=== PATIENT | male | born 1950 | race Caucasian/White ===

== ENCOUNTER 2017-11-20 16:49 | Inpatient (IN) | payer MEDICARE, MEDICAID ==
[~2017-11-20 16:49] MED LIST: ISOVUE-370 76%-LOCM 1 ML ONE
[2017-11-20] MEDS ORDERED: Fentanyl 100 MCG/2 ML VIAL ONE (17:21)
[2017-11-20 17:22] LABS: CO2 Tension 14.5 mmHg (35.0-45.0); pH, Arterial 7.28 (7.35-7.45)
[2017-11-20 17:23] LABS: Hemoglobin 2.4 g/dL (14.0-18.0); Mean Corpuscular HGB CONC 29.2 g/dL (32.0-36.0); Mean Corpuscular Hemoglobin 25.6 pg (27.0-31.0); Mean Corpuscular Volume 87.7 fl (80.0-94.0); Mean Platelet Volume 6.8 fL (7.4-10.4); Platelet Count 942 thou/uL (130-400); RBC Distribution Width 17.7 % (11.5-14.5); Red Blood Cell (RBC) Count 0.94 mill/uL (4.70-6.10)
[2017-11-20 17:23] LABS: Actual Bicarbonate (HCO3a) 6.7 mEq/L (22-26)
[2017-11-20 17:24] LABS: ALV-art Gradient 145.875 (0-20); Analyzer IN Cardio ER; Puncture Site RFA
[2017-11-20 17:31] LABS: PTT 226.2 SEC (22.9-36.1); Prothrombin Time Greater than 150.0 SEC (12.0-14.7)
[2017-11-20 17:33] LABS: ALT (SGPT) 908 U/L (8-55); AST (SGOT) 1935 U/L (5-34); Albumin 2.6 g/dL (3.4-4.8); Alkaline Phosphatase 84 U/L (40-150); BUN (Urea Nitrogen) 82 mg/dL (8.4-25.7); Bilirubin, Total 1.2 mg/dL (0.2-1.2); Calc. Creatinine Clearance 0 mL/min (70-130); Calcium 7.6 mg/dL (7.8-10.44); Chloride 107 mmol/L (98-107); Estimated GFR-MDRD 30; Globulin 2.4 g/dL (2.4-3.5); Glucose 166 mg/dL (80-115); Potassium 6.1 mmol/L (3.5-5.1); Sodium 140 mmol/L (136-145)
[2017-11-20 17:36] LABS: Carbon Dioxide Less than 8 mmol/L (23-31)
[2017-11-20] MEDS ORDERED: Midazolam HCl 2 mg/2 ml Vial ONE (17:37)
[2017-11-20 17:41] LABS: Bilirubin Negative (Negative); Blood, Urine Moderate (Negative); Clarity CLEAR (Clear); Glucose, Urine (Dipstick) Negative (Negative); Leukocyte Negative (Negative); Nitrite Negative (Negative); Protein, Urine (Dipstick) Negative (Neg-Trace); Specific Gravity, Urine 1.018 (1.002-1.036); Urobilinogen 0.2 mg/dL (0.2-1.0)
[2017-11-20 17:42] LABS: Troponin I 0.042 ng/mL (< 0.028)
[2017-11-20 17:43] LABS: Bacteria/HPF None Seen HPF (None Seen); Hyaline Casts/LPF 0-3 HYALINE CAST LPF (0-3 Hyaline); Pathc Cast-AUWi Flag 0.43 (0-2.49); RBC/HPF None Seen HPF (0-3); Squamous Epithelial 0-3 HPF (0-3); WBC/HPF None Seen HPF (0-3)
[2017-11-20] MEDS ORDERED: Calcium Gluc 4.6 MEQ/10 ML (100 MG/ML) ONE (17:44)
--- NOTE | 2017-11-20 17:45 | RAD ---
SINGLE VIEW OF THE CHEST: Comparison: None. History: Altered mental status for 3-4 days. Intubated for altered mental status. FINDINGS: Single view of the chest shows an enlarged cardiomediastinal silhouette. Patient is status post mullen otomy. The endotracheal tube is well aligned, approximately 1.4 cm from the donato. There is an NG tu be with tip in the stomach. There is no evidence of consolidation, mass, or pleural effusion. IMPRESSION: Low lying endotracheal tube. Recommend withdrawing approximately 2 cm. Code T POS: [facility]
[2017-11-20 17:49] LABS: CKMB 13.3 ng/mL (0-6.6)
[2017-11-20 17:50] LABS: Anisocytosis SLIGHT = 6-15 cells (100X) (0-5/hpf); Band 13 % (5-11); Fibrinogen 378 mg/dL (253-463); Lymphocytes 5 % (21-51); MDiff Complete? YES; Monocytes 6 % (0-10); Neutrophil 76 % (42-75); Nucleated RBC 12 % (0); Ovalocytes SLIGHT = 2-5 cells (100X) (0-1/hpf); PLT Morphology Comment Appears Increased; Polychromasia MODERATE = 3-4 cells (100X) (0-2/hpf); Reflex for Review?? YES; Target Cells SLIGHT = 2-5 cells (100X) (0-1/hpf); White Blood Cell (WBC) Count 27.9 thou/uL (4.8-10.8)
[2017-11-20 17:52] LABS: D-Dimer Test 0.31 *mcg/mL (0.27-0.43)
[2017-11-20 18:00] LABS: Iron 12 ug/dL (65-175); Iron Binding Capacity, Total 176 mcg/dL (261-462)
[2017-11-20 18:13] LABS: FSP-Qualitative Normal (Normal)
[2017-11-20 18:14] LABS: Platelet Count 942 thou/uL (130-400)
[2017-11-20] MEDS ORDERED: fentaNYL Citrate/PF 2,000 MCG in Sodium Chloride 0.9% 60 ML IV SCH ×2 (18:15→19:06)
[2017-11-20] MEDS ORDERED: Lidocaine 2% PF 5 ML VIAL ONE (18:24)
[2017-11-20] MEDS ORDERED: Octreotide Acetate 50 MCG/ML AMP ONE (18:38)
[2017-11-20] MEDS ORDERED: Octreotide Acetate 1,250 MCG in Sodium Chloride 0.9% 250 ML 250 ML IVPB SCH (19:00)
[2017-11-20] MEDS ORDERED: Pantoprazole 40 MG VIAL IVP SCH (19:00)
[2017-11-20] MEDS ORDERED: Norepinephrine 8 MG/0.9% NS 250 ML IVPB PRN (19:00)
[2017-11-20] MEDS ORDERED: cefTRIAXone\\ROCEPHIN 2 GM in Sodium Chloride 0.9% 100 ML IVPB SCH (19:00)
[2017-11-20] MEDS ORDERED: Lacri-Lube Opth Oint 3.5 GM TUBE EA EYE PRN (19:00)
[2017-11-20] MEDS ORDERED: Sedation Protocol FS SCH (19:00)
[2017-11-20] MEDS ORDERED: Fentanyl BOLUS 250 ML IVPB PRN (19:06)
[2017-11-20] MEDS ORDERED: Morphine 2 MG/ML SYRINGE SLOW IVP PRN (19:06)
[2017-11-20] MEDS ORDERED: DISCONTINUE PREVIOUS NARCOTIC PAIN MEDICATIONS AND BENZODIAZEPINES FS SCH (19:06)
[2017-11-20] MEDS ORDERED: Lorazepam 2 MG/ML VIAL SLOW IVP PRN (19:06)
[2017-11-20] MEDS ORDERED: Morphine 4 MG/ML VIAL SLOW IVP PRN (19:15)
[2017-11-20] MEDS ORDERED: PROPOFOL 20 ML ONE (19:27)
[2017-11-20 19:32] LABS: Hemoglobin 8.7 g/dL (14.0-18.0)
[2017-11-20] MEDS ORDERED: Acetaminophen 325 MG TAB PO PRN (19:37)
[2017-11-20 19:40] LABS: INR-International Normal Ratio 3.4; Prothrombin Time 35.5 SEC (12.0-14.7)
[2017-11-20] MEDS: PROPOFOL 200 MG/20 ML VIAL IVP SCH (19:48)
[2017-11-20 19:53] LABS: Acetaminophen Less than 6.0 mcg/mL (10.0-30.0); Anion Gap 27 mmol/L (10-20); BUN (Urea Nitrogen) 79 mg/dL (8.4-25.7); Calc. Creatinine Clearance 0 mL/min (70-130); Calcium 8.2 mg/dL (7.8-10.44); Carbon Dioxide 10 mmol/L (23-31); Chloride 107 mmol/L (98-107); Estimated GFR-MDRD 33; Glucose 181 mg/dL (80-115); Magnesium 2.8 mg/dL (1.6-2.6); Phosphorus 7.9 mg/dL (2.3-4.7); Potassium 5.1 mmol/L (3.5-5.1); Sodium 139 mmol/L (136-145)
[2017-11-20 19:55] LABS: Lactic Acid 12.9 mmol/L (0.5-2.2)
--- NOTE | 2017-11-20 20:26 | CON ---
DATE OF CONSULTATION: 11/20/2017 SERVICE: Pulmonary Medicine. REASON FOR CONSULTATION: Hemorrhagic shock. HISTORY OF PRESENT ILLNESS: The patient is a 67-year-old white male with past medical history signif icant for alcohol abuse and cirrhosis of the liver. He had a history of elevated INR and liver dysfu nction. Either way, apparently he was in his usual state of health when he was not heard from family members for a period of 3-4 days. He was found down in his apartment. There was a significant amou nt of melena in the bed. He was brought to the emergency department. Initial laboratories were cons istent with severe bleed. He was pale, tachycardic and poorly responsive. He was intubated. Once t he airway was secured, original laboratories came back and hemoglobin was 2.0. He was resuscitated w ith a transfusion protocol. He is currently developing improving hemodynamics. That being said, it appears as though he shocked his liver, and other organs. The patient's brain is working to some deg ree. He is following some simple commands on mechanical ventilation. He cannot provide much in the way of historical elements because he is currently intubated and a little somnolent. PAST MEDICAL HISTORY 1. Atrial fibrillation. 2. Aortic regurgitation. 3. History of PCI. 4. Hypertension. PAST SURGICAL HISTORY: 1. AICD placement. 2. Herniorrhaphy. SOCIAL HISTORY: Unknown. FAMILY HISTORY: Noncontributory. ALLERGIES: No known drug allergies. MEDICATIONS: List of his previous outpatient medications was reviewed. At that time, he was on warf radha, carvedilol, propranolol, lisinopril and meclizine. Inpatient medications were reviewed and mod ified heavily. REVIEW OF SYSTEMS: This cannot be obtained as the patient is currently intubated. PHYSICAL EXAMINATION: VITAL SIGNS: Afebrile, pulse 98, respirations 21, saturation 100% on 21% FiO2 and a PEEP of 5. GENERAL: The patient is awake. He is a little somnolent/encephalopathic. HEENT: Normocephalic, atraumatic. Sclerae are white, conjunctivae pink. Oral and nasal mucosa is m oist without lesions. LUNGS: Excellent air entry. There is no prolonged expiratory phase, wheezing, rhonchi, or crackles present. HEART: Normal rate, regular. ABDOMEN: Soft, nontender, nondistended. Bowel sounds are positive. MUSCULOSKELETAL: No cyanosis or clubbing. There is no pitting in the bilateral lower extremities. NEUROLOGIC: Grossly nonfocal. He is moving all 4 extremities. LABORATORY DATA: WBC 27.9, hemoglobin 2.4, platelets 942,000. Band count is 13%. His PT is greater than the limits. INR cannot be calculated as a result. PTT 226. D-dimer is low. A pH 7.28, pCO2 of 14, pO2 of 449. Acidosis is improved slightly. Potassium 6.1, bicarbonate is below 8. Creatinin e 2.18, glucose 166, calcium 7.6. Total bilirubin 1.2. TIBC 176, iron 12, ferritin 214. CK-MB 13.3 . Albumin 2.6, troponin 0.04. TSH 4.1. IMAGING: Chest x-ray demonstrates endotracheal tube, roughly 1-2 cm above the donato. There are ret icular nodular infiltrates throughout bilateral lung hess. There is an aortic valve that has been replaced and evidence of prior sternotomy. Enteric catheter is coursing below the level of the diaph ragm. It is in the expected region of the stomach. ASSESSMENT: 1. Respiratory failure secondary to inability to protect airway. 2. Acute blood loss anemia. 3. Hemorrhagic shock. 4. History of Coumadin use. 5. Acute kidney injury. 6. Shock liver. PLAN: We will put him on some antibiotic, we will check a Tylenol level, and lactate. I personally stood here while we gave 6 units of blood, 6 units of FFP, multiple platelet units, calcium, and othe r medications at bedside. I also put in an art line. The patient is critically ill. I have updated the patient's fiance at bedside. He understands how gravely ill he is. She tells me at this point that he would not like to live in a chronically debilitated state. I told her that if we can make it through this, there is a possibility that he could recover to his previous level of function. [facility] will continue to follow very closely. CRITICAL CARE TIME: 110 minutes.
--- NOTE | 2017-11-20 20:46 | CT ---
CT ABDOMEN AND PELVIS WITH CONTRAST: Comparison: None. History: Altered mental status for 3-4 days. Possible GI bleed. Bloody diarrhea. Technique: Multiple contiguous axial images were obtained in a CT of the abdomen and pelvis with cont rast. Coronal reformats were performed. FINDINGS: An NG tube is seen in the stomach. A Moreno catheter decompresses the urinary bladder. The liver, gall bladder, kidneys, adrenal glands, spleen, and pancreas are unremarkable. There are stranding changes adjacent to the sigmoid colon. A few scattered diverticula are seen in th is region and this may represent acute diverticulitis. The small bowel is unremarkable. No free air i s seen in the abdomen. A small amount of free fluid is seen in the pelvis. No abdominal or pelvic lym phadenopathy are seen. Mild degenerative changes are seen in the spine. Atelectasis is seen in the jarek ng bases. The abdominal wall soft tissues are unremarkable. IMPRESSION: Acute diverticulitis. POS: [facility]
[2017-11-20] MEDS ORDERED: Multivitamins, Adult 10 ML, Folic Acid 1 MG, Thiamine HCl 100 MG in Dextrose 5 %-0.45 %... IV SCH (21:00)
[2017-11-20] MEDS: Propofol 1,000 MG/100 ML VIAL IV PRN (21:30)
[2017-11-20 22:24] LABS: Lactic Acid 7.3 mmol/L (0.5-2.2)
--- NOTE | 2017-11-20 23:08 | HP ---
DATE OF ADMISSION: 11/20/2017 PRIMARY CARE PHYSICIAN: Dr. Barak Bower. CHIEF COMPLAINT: Found down. HISTORY OF PRESENT ILLNESS: This is a 67-year-old male who [facility]. After his girlfriend notified the apartment complex t hat she had not heard from her boyfriend in 2-3 days. EMS personnel arrived and found the patient ob tunded with blood sugar noted 34 on site. Patient was given 1 amp of D50 and noticed bloody diarrhea on the patient in the floor. Patient was last seen normal approximately 3-4 days prior to this eval uation, as patient's girlfriend was hospitalized herself for TIA type symptoms. The history is obtai cristina after review of the electronic medical record as well, discussions with the patient's girlfriend at the bedside. Patient has a longstanding history of alcohol abuse using alcohol on a daily basis i n large quantities; however, the girlfriend is unable to quantitate volume. Patient is not intereste d in discontinuing this trend or habit. No specific history of alcohol withdrawal seizures per girl riend report. Patient is normally functional of all activities of daily living and lives several doo rs down from girlfriend in [place], [place]. Patient was transported to the emergency department at [facility] undergoing initial evaluation. Initial evaluation in the emergency room showed patient to be obtunded with a GCS score of 6. Patient was intubated and given IV fentany l, Versed, and Amidate. Patient's screening metabolic survey showed severe anemia with hemoglobin of 2.4, hematocrit of 8.2, and platelet count at 942. Patient was also noted with an INR that was unab le to be calculated due to elevated PT and PTT levels. Patient received a total of 6 units of packed red blood cells through rapid infuser as well as 6 units of fresh-frozen plasma. Patient was transf erred to the Critical Care Unit undergoing emergent EGD evaluation by GI service. No specific upper gastrointestinal source of bleed was noted or prominent variceal pathology. Patient continued on int ravenous normal saline as well as sedation with fentanyl and propofol. PAST MEDICAL HISTORY: 1. Alcohol abuse. 2. Aortic regurgitation. 3. History of atrial fibrillation. 4. Status post cardiac stent placement. 5. Status post pacemaker with AICD. 6. Hypertension. 7. Noncompliance. 8. History of questionable depression. 9. Question of suicidal ideation with overdose of heart medications, 2011. PAST SURGICAL HISTORY: 1. Status post hernia repair x2. 2. Status post pacemaker/AICD placement. 3. Status post cardiac stent placement after angioplasty. CURRENT MEDICATIONS: Unobtainable. ALLERGIES: No known drug allergies. FAMILY HISTORY: Unobtainable due to patient's current mechanical ventilation and sedation. SOCIAL HISTORY: Resides in [place], [place]. Girlfriend present at the bedside. Heavy alcohol use d aily. No tobacco or illicit drug use. REVIEW OF SYSTEMS: Unobtainable as patient obtunded and unable to provide history. PHYSICAL EXAMINATION: VITAL SIGNS: On admission, blood pressure 85/43, pulse 93, respiratory rate is 20, temperature 94.1 by CritiCore device. O2 saturation 100% on FIO2 of 100% by mechanical ventilation. GENERAL APPEARANCE: This is a 67-year-old male, pale appearing, fighting the ET tube, open s eyes, briefly to name, undergoing urgent EGD evaluation. HEENT: Pupils are minimally reactive to light and accommodation. Extraocular muscles are intact. N o scleral icterus. Nares patent. OP with ET tube and EGD scope in place. NECK: Supple. No cervical adenopathy, no thyromegaly, no carotid bruits, no JVD appreciated. Scalp is atraumatic. CHEST: Lungs are clear to auscultation bilaterally. CARDIOVASCULAR: S1, S2 without noted murmur. ABDOMEN: Rounded, soft, nontender, bowel sounds are positive in all four quadrants. No palpable mas s. EXAM: Per ER report showed melena at the rectum. Moreno catheter in place with natali urine. EXTREMITIES: Pale with poor skin turgor. Pulses palpable distally at the dorsalis pedis, posterior tibial, and popliteal arteries bilaterally. Capillary refill 4 seconds. Left upper extremity with i ntraosseous IV. Left foot with peripheral IV intact. NEUROLOGIC: Minimal response to name or stimulation. GCS at the time of admission of 6. PERTINENT LABORATORY DATA AND X-RAY FINDINGS: Sodium 140, potassium 6.1, chloride 107, CO2 less than 8, BUN 82, creatinine 2.18, estimated GFR of 30, glucose 166, calcium 7.6. AST 1935, ALT 908. Tota l bilirubin 1.2, alkaline phosphatase 84, troponin 0.042. Albumin 2.6. Serum iron level 12, TIBC 17 6, ferritin 215. Lactic acid level 12.9. CBC showed a white blood cell count 27.9, hemoglobin 2.4, hematocrit 8.2, MCV 88, platelet count 942 with 76% neutrophils, 13% bands. PT greater than 150. PT T 226. INR not calculated. ABG dated 11/20/2017 at 1715 showed a pH of 7.28, pCO2 of 14.5, pO2 of 5 49, bicarbonate 6.7, O2 saturation on 100% FiO2 by SIMV. Urinalysis showed positive blood. Urine dr ug screen showed acetaminophen level less than 6. Stool Hemoccult dated 11/20/2017, positive x1. Po rtable chest x-ray dated 11/20/2017 showed endotracheal tube in approximately 1.4 cm below the donato . NG tube in the stomach. No consolidation. CT of the abdomen and pelvis dated 11/20/2017 showed n o acute biliary process. Final results pending. EKG dated 11/20/2017 by my interpretation shows atr ial fibrillation with heart rates in the 90s. Attenuated R waves noted in the precordial leads. Nor mal axis. T-wave flattening in leads V4 through V6. ASSESSMENT AND PLAN: 1. Acute gastrointestinal bleed. Patient will be admitted to the critical care unit. Emergent EGD showing negative pathology of the upper GI tract. Plan for colonoscopy when patient clinically stabi lizes. Continue aggressive IV fluid hydration and transfusion of packed red blood cells. Status pos t 6 units of packed red blood cells and 6 units of fresh-frozen plasma. Continue octreotide infusion . Continue Protonix 40 mg IV q.12 hours. 2. Acute blood loss anemia. See #1 above. Status post 6 units of packed red blood cells and 6 unit s of fresh-frozen plasma. Continue serial H&H monitoring and transfuse as clinically indicated. Elba n for colonoscopy and patient clinically stabilizes. 3. Hemorrhagic shock. Secondarily to #1 and #2. We will continue intravenous fluids. Levophed inf usion to maintain systolic blood pressure greater than or equal to 100. Continue volume replacement aggressively to avoid circulatory collapse. 4. Acute respiratory failure with mechanical ventilation. Status post intubation with SIMV. Pulmon ology consulted from ventilatory management. Sedation protocol. 5. Severe coagulopathy. Exact etiology unclear, however, likely related to alcohol abuse and liver shock. Status post 6 units of fresh-frozen plasma and 6 units of packed red blood cells. Continue s erial coagulation monitoring. 6. Shock liver. Suspect secondarily to patient's current presentation and hemorrhagic shock. Pratik nue serial LFT monitoring. Consider right upper quadrant ultrasound imaging if no specific change to current LFT trend. 7. Acute kidney injury. Suspect multifactorial including volume depletion and acute blood loss. Co ntinue intravenous fluids. Avoid nephrotoxic agents and contrast media. Repeat creatinine in the a. m. 8. Lactic acidosis. Suspect multifactorial including acute blood loss anemia and volume depletion. Continue resuscitation as outlined previously in #1. Repeat lactic acid level in 3 hours. 9. Alcohol abuse. Continue Ativan 2 mg IV q.3 hours p.r.n. withdrawal symptoms. Banana bag at 125 mL per hour. 10. Prophylaxis. Sequential compression devices while in bed. Protonix 40 mg IV q.12 hours. 11. Sedation protocol. Critical Care Unit electrolyte replacement protocol. 12. Code status is FULL. Surrogate medical decision maker is patient's fiancee. Total critical care time is 35 minutes.
[2017-11-20] MEDS ORDERED: diphenhydrAMINE 50 MG/ML VIAL IVP SCH (23:45)
[2017-11-21] MEDS: Propofol 1,000 MG/100 ML VIAL IV PRN (04:15)
[2017-11-21 05:11] LABS: INR-International Normal Ratio 2.3; Prothrombin Time 26.3 SEC (12.0-14.7)
[2017-11-21 05:22] LABS: ALT (SGPT) 1980 U/L (8-55); AST (SGOT) Greater than 3500 U/L (5-34); Albumin 3.3 g/dL (3.4-4.8); Alkaline Phosphatase 118 U/L (40-150); Anion Gap 17 mmol/L (10-20); BUN (Urea Nitrogen) 81 mg/dL (8.4-25.7); Bilirubin, Total 1.5 mg/dL (0.2-1.2); Calc. Creatinine Clearance 40 mL/min (70-130); Calcium 8.3 mg/dL (7.8-10.44); Carbon Dioxide 23 mmol/L (23-31); Chloride 109 mmol/L (98-107); Estimated GFR-MDRD 40; Globulin 2.8 g/dL (2.4-3.5); Glucose 106 mg/dL (80-115); Magnesium 2.7 mg/dL (1.6-2.6); Phosphorus 4.4 mg/dL (2.3-4.7); Potassium 3.6 mmol/L (3.5-5.1); Protein, Total 6.1 g/dL (5.8-8.1); Sodium 145 mmol/L (136-145)
[2017-11-21 05:29] LABS: Band 8 % (5-11); Hemoglobin 8.5 g/dL (14.0-18.0); Lymphocytes 11 % (21-51); MDiff Complete? YES; Mean Corpuscular HGB CONC 34.9 g/dL (32.0-36.0); Mean Corpuscular Hemoglobin 28.8 pg (27.0-31.0); Mean Corpuscular Volume 82.3 fl (80.0-94.0); Mean Platelet Volume 6.3 fL (7.4-10.4); Monocytes 2 % (0-10); Neutrophil 79 % (42-75); Nucleated RBC 3 % (0); PLT Morphology Comment Appears Adequate; Platelet Count 431 thou/uL (130-400); Red Blood Cell (RBC) Count 2.96 mill/uL (4.70-6.10); White Blood Cell (WBC) Count 14.5 thou/uL (4.8-10.8)
[2017-11-21 08:10] LABS: pH, Arterial 7.56 (7.35-7.45)
[2017-11-21 08:11] LABS: Actual Bicarbonate (HCO3a) 22.8 mEq/L (22-26); Analyzer IN Cardio ER; Hematocrit-ABG 22.7 % (42.0-52.0); Hemoglobin (Hb) 8.2 g/dL (14.0-18.0); O2 Tension (PaO2) 65.7 mmHg (80.0-100.0); Puncture Site LINE
[2017-11-21] MEDS ORDERED: Furosemide 20 MG/2 ML VIAL SLOW IVP SCH (08:15)
[2017-11-21] MEDS: metroNIDAZOLE 500 MG in Premix Bag 1 BAG IVPB SCH ×2 (08:20→15:41)
[2017-11-21] MEDS: Pantoprazole 40 MG VIAL IVP SCH ×2 (08:20→21:59)
[2017-11-21] MEDS: Dextrose 5% in Water 1,000 ML IV SCH (08:28)
--- NOTE | 2017-11-21 08:59 | CON ---
DATE OF CONSULTATION: 11/20/2017 REASON FOR CONSULTATION: GI hemorrhage. HISTORY OF PRESENT ILLNESS: Mr. Bolivar is a 67-year-old male. Information comes with talking to e nurses and doctors taking care of him so far including ER doctors and local care, as well as signif icant other at the bedside. He apparently was found down at home on the floor in black stool, was no nresponsive, and was brought to the emergency room here. Here, he was found to be tachycardic, hypot ensive with systolic blood pressures that were in the 60s to 50s when obtainable. He showed signs of melena. Apparently, his initial white count was 27.9 with a hemoglobin of 2.4 grams and a platelet count of 942, 76 segs, 13 lymphs, and INR that was not able be calculated. PT was greater than 150 a nd PTT was greater than 226. He had a normal INR on 03/10/2017. Blood gas at 1750 hours was 6.7 wit h a pCO2 of 14, pO2 of 549. He has been intubated already at that time. Dr. Acosta, the ICU doctor , tells me his pH has come up to 7.3. Labs were notable for a sodium of 141, potassium 6.1, chloride of 106, serum bicarbonate of less than 8, BUN of 82, creatinine of 2.18. On 09/29/2017, his BUN and creatinine were 12 and 1.12. Glucose was 166, calcium was 7.6, bilirubin 1.2, iron 12, TIBC 176, fe rritin 214, AST 1935, and ALT 908. On 02/2017, his AST and ALT have been normal. Albumin was 2.6 wi a protein of 5. Troponin was 0.042 and that is all has been obtained so far. Urine showed some b lood and otherwise was normal. After resuscitation with 6 units of blood and 3 units FFP and 1 unit of platelets, his pressure did come up. He was still on Levophed in the ER. He has been given a Pro tonix bolus and he will be given octreotide bolus, but drip had not yet started. PAST MEDICAL HISTORY: The patient's significant other reports he has a history of heart disease and has had aortic valve replacement. Other cardiac history is unknown. Previous ER visit from 11/2015 notes a history of cardiac arrhythmia, aortic regurgitation, angioplasty, stent placement, pacemaker and AICD, hypertension. PAST SURGICAL HISTORY: Includes a shoulder surgery and aortic valve surgery. Previous note indicate s that he may have had some issues with depression in the past. Previous inpatient psychiatric admissions, history of previous suicide attempts on HAART medications, overdose on 10/2011. SOCIAL HISTORY: The patient's significant other notes he was drinking heavily. FAMILY HISTORY: Unknown. MEDICATIONS: Present medications at home unknown, although it appears he was possibly taking Coumadi n. Previously, he was on meclizine, carvedilol, propranolol, and lisinopril as well, but that was in 2016. PHYSICAL EXAMINATION: GENERAL: The patient is intubated. He has an OG-tube in returning green bile-like material. After resuscitation, he has had some more reddish material from the rectum. VITAL SIGNS: Pulses in the 80s to 120s, systolic blood pressures in the 60s to 80s, respirations 18. ABDOMEN: Tight and distended. No bowel sounds are present. There is no rebound or guarding. HEART: Has sinus tachycardia. LUNGS: Clear. HEENT: His eyes are open and he seems to understand what his significant other is saying to him. ASSESSMENT: 1. Gastrointestinal hemorrhage, it is unclear when this started or how acute is this. At first, it was reported, he is having melena, but then this is more of maroon stool. His OG tube returned some green bile material, no overt blood. This makes a variceal bleed or from gastric or stomach less lik matt. Duodenal ulcer is still possible with his massively elevated INR. He could just be bleeding fr om vague mucosal abnormalities. Other possibility will be rectal varices. I was unable to do a rect al exam on him as he was leaving for CT angiogram. 2. Severe coagulopathy. It is unclear if this is related to fulminant liver failure, overdose on Co umadin, or related to acute hepatitis underlying liver disease. 3. Prior history of psychiatric disorders documented on the chart in 2016. Possibility of overdose with his warfarin should be considered in the notes, then mentioned he had done that in the past. Ot her possibility would be that of overdose from Tylenol or be considered either on purpose or as a the rapeutic misadventure since he had been drinking large amounts of alcohol as reported by the signific ant other. RECOMMENDATIONS: 1. IV Protonix drip. 2. Octreotide drip. 3. Reversal of blood thinners and coagulation defects with cryoprecipitate or FFP as pertinent massi ve transfusion protocol. 4. Airways have been secured. 5. OG tube is in place. 6. The patient is going for CT angio per ICU staff as they opted to evaluate that for signs of any m assive internal bleeding that could be identified in light of the negative return from the OG tube. 7. If these were normal, we would go ahead and proceed with EGD this evening as he is intubated pres ently. I have discussed with the patient's significant other that we may not be able to control blee ding based on his coagulopathy at this time, but if he has ongoing hemorrhage, we would need to see i f we can find any varices which could possibly be banded. 8. Continue aggressive replacement of blood products and reversal of anticoagulation. 9. We will consider empirical treatment with Mucomyst if there is any detectable Tylenol level whats oever. I will follow along with you. 10. Severe metabolic acidosis on presentation, improved some with intubation. 11. If the patient has developed fulminant liver failure, this is not likely survivable. We will fo llow along with you in the ICU closely.
[2017-11-21] MEDS: Folic Acid 1 MG TAB PO SCH (09:05)
--- NOTE | 2017-11-21 09:12 | PRG ---
DATE OF SERVICE: 11/21/2017 SERVICE: Pulmonary Medicine. INTERVAL HISTORY: The patient is doing fantastic from a respiratory standpoint. It appears that he is not having any further GI bleed. His INR is roughly stable. Otherwise, there has been no interva l change to his condition. He cannot provide any additional elements of the history, but because he is on sedation. Neurologically, he has got nonfocal exam. He was previously following some commands . PHYSICAL EXAMINATION: VITAL SIGNS: T-max 100.1, pulse 92, blood pressure 117/72, respirations 18, saturation 97% on 27% Fi O2 and a PEEP of 5. GENERAL: Patient is intubated and sedated. HEENT: Normocephalic, atraumatic. Sclerae are white. Conjunctivae are now pink. Oral and nasal mu cosa is moist without lesions. LUNGS: Excellent air entry. There is no prolonged expiratory phase, wheezing, rhonchi, or crackles present. HEART: Normal rate and regular. ABDOMEN: Soft, nontender, nondistended. Bowel sounds are positive. MUSCULOSKELETAL: No cyanosis or clubbing. There is no pitting in the bilateral lower extremities. NEUROLOGIC: Grossly nonfocal. LABORATORY DATA: WBC 14.5, hemoglobin 8.5, and platelets 431,000. INR 2.3. A pH 7.56, pCO2 of 26, pO2 66. This corresponds to a saturation of 97%. Creatinine 1.7, BUN 81. Basic metabolic profile o therwise unremarkable. Lactate is down trending to 7.3. AST is greater than the assay limit of 3500 and up trending. ALT is also up trending to 1900. Total bilirubin is up trending to 1.5. Ammonia 232. IMAGING: CT of the abdomen and pelvis was consistent with diverticulitis. DISCUSSION: 1. Acute hypoxic respiratory failure. 2. Acute blood loss anemia. 3. Hemorrhagic shock, resolved. 4. Hypercoagulable state secondary to Coumadin use and possible abuse. 5. Acute kidney injury, improving. 6. Shock liver. PLAN: We will stop the multivitamin and put him on thiamine and folate daily. I will replace his po tassium and put him on D5 water at 50 an hour. I will provide him with 1 dose of Lasix as his ins an d outs have been significantly positive over the last 24 hours. Pulmonary or Critical Care will cont inue to follow while he remains in this location. We will give him sedation holiday. If he wakes up appropriately, a spontaneous breathing trial will be provided and extubation will be considered. We will only leave him intubated if colonoscopy can be done sooner than later. Otherwise, at this poin t I do believe he is hemodynamically stable to proceed with conscious sedation in the next day or two . CRITICAL CARE TIME: 30 minutes.
--- NOTE | 2017-11-21 09:13 | ULT ---
HEPATIC SONOGRAM WITH DUPLEX EVALUATION: History: Abnormal liver function tests. FINDINGS: Minimal nonshadowing echogenic material layers within the dependent portion of the gallbladder lumen. There is no gallbladder wall thickening. Small amount of fluid surrounds the gallbladder in the gall bladder fossa and is present elsewhere within the right upper quadrant. Common duct is 0.7 cm upper l imits of normal. Liver is heterogeneous and hyperechoic without focal abnormality apparent. Spleen is 11.1 cm. Good color and spectral doppler flow are present within the hepatic and splenic arteries. Portal veno us flow is towards the liver. Hepatic venous flow is towards the IVC. IMPRESSION: 1. Small amount of biliary sludge within the gallbladder is consistent with chronic gallbladder dyski nesis. No evidence of acute biliary obstruction. 2. Hepatosteatosis. Only findings of portal venous hypertension or small amount of free fluid within the abdomen. 3. Appropriate directional portal venous flow. POS: [facility]
[2017-11-21 10:49] LABS: Base Excess-Venous -21.5 mmol/L (0 (+/- 2.5)); Bicarbonate (HCO3v) 5.1 mmol/L (1.0-85.0); CO2 Tension (PvCO2) 13.9 mmHg (41.0-51.0); Calcium, Ionized 0.98 mmol/L (1.12-1.32); Lactate 13.42 mmol/L (0.50-2.20); O2 Tension (PvO2) 86.4 mmHg (35.0-45.0); Potassium 6.1 mmol/L (3.4-4.7); T. Carbon Dioxide 5.5 mmol/L (1.0-85.0); pH (Venous) 7.172 (7.35-7.45); vO2 Saturation-calc 94.1 % (94-98)
--- NOTE | 2017-11-21 11:34 | OP ---
PROCEDURE: Esophagogastroduodenoscopy. PREPROCEDURE DIAGNOSES: Gastrointestinal hemorrhage. OG tube revealed only green return, with a hem oglobin of 2.0 on presentation. We will plan for EGD to rule out duodenal ulcer. POSTPROCEDURE DIAGNOSES: 1. Normal esophagogastroduodenoscopy with no varices in the esophagus or stomach. Normal stomach mu cosa. No signs of portal hypertension or ulcers. 2. Normal pylorus. 3. Duodenum normal in the third portion. No evidence of ulcers or bleeding sites. The scope was re moved. RECOMMENDATIONS: 1. Discontinue octreotide drip. 2. Continue Protonix IV q. day. 3. Monitor H and H. 4. Finish blood products for the massive transfusion protocol, we will hold off on factor VII and tinsley ve gone over this and the exact blood products with the nursing staff. 5. Serial H and Hs. 6. Obtain Tylenol level. 7. Follow liver function tests and INR. ANESTHESIA: General endotracheal anesthesia. PROCEDURE IN DETAIL: After the patient's fiancee was informed of the risk, benefits, and possible co mplications of endoscopy including perforation, bleeding, reactions to medication and aspiration, inf ormed consent was obtained. The patient was brought to the endoscopy suite where patient was already intubated in the ICU. He was sedated by the ICU staff, physicians, and nurses. A bite block was th en placed in the incisural orifice. The endoscope was advanced through the esophagus, stomach, and s econd and third portion of duodenum and slowly removed. The esophagus was normal. The stomach was n ormal. There is no evidence of varices, no signs of portal hypertension. Forward and retroflexed vi ews were normal in the esophagus. The duodenum was normal to the third portion with no bleeding. Th ere was just bile noted in the duodenum and stomach. There was a small clot in the stomach. This wa s felt probably related to displacment of his OG tube as there was no active bleeding. The scope was removed. The patient tolerated the procedure well with no complications.
[2017-11-21] MEDS: PROPOFOL 200 MG/20 ML VIAL IVP SCH (12:20)
[2017-11-21 14:27] LABS: Lactic Acid 2.6 mmol/L (0.5-2.2)
[2017-11-21] MEDS ORDERED: Fentanyl BOLUS 250 ML IVPB PRN (17:45)
[2017-11-21] MEDS ORDERED: DISCONTINUE PREVIOUS NARCOTIC PAIN MEDICATIONS AND BENZODIAZEPINES FS SCH (17:45)
[2017-11-21] MEDS ORDERED: Fentanyl CADD 250 ML IVPB SCH (17:45)
[2017-11-21] MEDS ORDERED: Lorazepam 2 MG/ML VIAL SLOW IVP PRN (17:45)
[2017-11-21] MEDS: Clindamycin/D5W 900 MG in Premix Bag 1 BAG IVPB SCH ×2 (17:45→23:00)
[2017-11-21] MEDS ORDERED: Propofol 1,000 MG/100 ML VIAL IV PRN (17:45)
[2017-11-21] MEDS ORDERED: Morphine 4 MG/ML VIAL SLOW IVP PRN (17:46)
[2017-11-21] MEDS ORDERED: Acetaminophen 650 MG in Premix Bag 1 BAG IVPB PRN (17:48)
[2017-11-21] MEDS ORDERED: fentaNYL Citrate/PF 2,000 MCG in Sodium Chloride 0.9% 60 ML IV SCH (18:00)
[2017-11-21] MEDS ORDERED: Vancomycin HCl 1 GM in Premix Bag 1 BAG IVPB SCH (18:00)
[2017-11-21] MEDS ORDERED: cefTRIAXone\\ROCEPHIN 2 GM in Sodium Chloride 0.9% 100 ML IVPB SCH (20:00)
--- NOTE | 2017-11-21 20:27 | PDOC.PN ---
- Subjective Encounter Start Date: 11/21/17 Encounter Start Time: 08:20 Subjective: f/u for acute GI blood with acute blood loss and 6u PRBC's with coagulopath -: tx with 6u FFP. Resp failure on mech vent apparent extubated this am. -: Remains lethargic on NRB per nursing. - Objective MAR Reviewed: Yes Vital Signs & Weight: Vital Signs (12 hours) Temp Pulse Resp BP Pulse Ox 11/21/17 18:00 13 11/21/17 16:00 102.3 F H 15 96 11/21/17 14:00 20 11/21/17 12:20 103 H 143/64 H 11/21/17 12:00 99.1 F 88 L Weight Weight 151 lb 7.321 oz Most Recent Monitor Data Heart Rate from ECG 99 NIBP 122/79 NIBP BP-Mean 99 Respiration from ECG 14 SpO2 100 I&O: 11/20/17 11/21/17 11/22/17 06:59 06:59 06:59 Intake Total 1732.2 1719 Output Total 1720 1965 Balance 12.2 -246 Result Diagrams: 11/21/17 04:23 11/21/17 04:23 Additional Labs: Microbiology 11/20/17 17:00 Stool - Pending Stool Occult Blood (LEEANNA) - Final 11/21/17 12:30 Sputum Respiratory Culture - Preliminary 11/20/17 17:33 Urine barber catheter Urine Culture - Preliminary NO GROWTH AT 24 HOURS Laboratory Tests 11/20/17 11/20/17 11/20/17 17:03 17:10 17:10 WBC 27.9 H Hgb 2.4 L* Plt Count 942 H* 942 H* Band Neuts % (Manual) 13 H PT Greater than 150.0 H* INR APTT 226.2 H* Potassium Creatinine Lactic Acid POC Venous Lactate 13.42 H* Iron TIBC Ferritin AST ALT Ammonia Acetaminophen 11/20/17 11/20/17 11/20/17 17:10 17:10 17:10 WBC Hgb Plt Count Band Neuts % (Manual) PT INR APTT Potassium 6.1 H Creatinine 2.18 H Lactic Acid POC Venous Lactate Iron 12 L TIBC 176 L Ferritin 214.96 AST 1935 H ALT 908 H Ammonia Acetaminophen 11/20/17 11/20/17 11/20/17 19:21 19:21 19:21 WBC Hgb Plt Count Band Neuts % (Manual) PT INR APTT Potassium 5.1 Creatinine 2.03 H Lactic Acid 12.9 H* POC Venous Lactate Iron TIBC Ferritin AST ALT Ammonia 232 H Acetaminophen Less than 6.0 L 11/20/17 11/20/17 11/20/17 19:21 19:21 21:03 WBC Hgb 8.7 L Plt Count Band Neuts % (Manual) PT 35.5 H INR 3.4 APTT Potassium Creatinine Lactic Acid 7.3 H* POC Venous Lactate Iron TIBC Ferritin AST ALT Ammonia Acetaminophen 11/21/17 11/21/17 11/21/17 04:23 04:23 04:23 WBC Hgb Plt Count Band Neuts % (Manual) 8 PT 26.3 H INR 2.3 APTT Potassium Creatinine Lactic Acid POC Venous Lactate Iron TIBC Ferritin AST Greater than 3500 H ALT 1980 H Ammonia Acetaminophen 11/21/17 14:02 WBC Hgb Plt Count Band Neuts % (Manual) PT INR APTT Potassium Creatinine Lactic Acid 2.6 H POC Venous Lactate Iron TIBC Ferritin AST ALT Ammonia Acetaminophen Radiology Reviewed by me: Yes (ABD sono - biliary sludge) EKG Reviewed by me: Yes (Tele - A-fib in 90's) Phys Exam - Physical Examination lethargic, opens eyes briefly, +resp distress with NRB in place HEENT: oral pharynx no lesions Neck: no JVD, supple coarse sounds bilat, transmitted upper airway sounds Cardiovascular: irregular distended, mild TTP in LLQ Gastrointestinal: positive bowel sounds Musculoskeletal: no edema, pulses present Neurological: moves all 4 limbs lethargic Skin: normal turgor, cap refill <2 seconds Dx/Plan (1) Acute GI bleeding Code(s): K92.2 - GASTROINTESTINAL HEMORRHAGE, UNSPECIFIED Status: Acute Comment: Suspected lower tract source, s/p 6u PRBC's, serial H/H, Protonix 40mg IV q12h, likely will need colonoscopy if clinically stabilizing (2) Acute blood loss anemia Code(s): D62 - ACUTE POSTHEMORRHAGIC ANEMIA Status: Acute Comment: s/p massive transfusion protocol with 6u PRBC's, H/H stabilizing currently, monitor for recurrence, CBC (3) Coagulopathy Status: Acute Comment: Severe coagulopathy improved with FFP, monitor closely , serial PT/PTT/INR (4) Acute respiratory failure with hypoxia Code(s): J96.01 - ACUTE RESPIRATORY FAILURE WITH HYPOXIA Status: Acute Comment: Extubated this am, appears pt may decompensate and need re-intubation, 100% NRB, pulmonary support, Pulmonology following (5) Hemorrhagic shock Code(s): R57.8 - OTHER SHOCK Status: Acute Comment: See above, IVF's, blood product administration, pressor support as needed (6) Shock liver Code(s): K72.00 - ACUTE AND SUBACUTE HEPATIC FAILURE WITHOUT COMA Status: Acute Comment: LFT's continuing to elevate, suspected due acute blood loss, hypoperfusion (7) GABY (acute kidney injury) Code(s): N17.9 - ACUTE KIDNEY FAILURE, UNSPECIFIED Status: Acute Comment: Improved with volume replacement, avoid nephrotoxic agent and limit contrast exposure, serial monitoring (8) Lactic acidosis Code(s): E87.2 - ACIDOSIS Status: Acute Comment: Improved with volume and blood product resuscitation, serial monitoring (9) Alcohol abuse Code(s): F10.10 - ALCOHOL ABUSE, UNCOMPLICATED Status: Acute (10) Aspiration pneumonia Code(s): J69.0 - PNEUMONITIS DUE TO INHALATION OF FOOD AND VOMIT Status: Acute Qualifiers: Aspiration pneumonia type: due to gastric secretions Laterality: bilateral Lung location: unspecified part of lung Qualified Code(s): J69.0 - Pneumonitis due to inhalation of food and vomit Comment: Suspected, add Clindamycin 900mg IV q6h, Vancomycin 1gm IV q12h, pulmonary support, monitor cx results - Plan plan discussed w/ family, continue antibiotics, social media content manager, respiratory therapy, DVT proph w/SCDs Continue aggressive supportive measures -: Continue Clindamycin and Vancomycin -: Duonebs and pulmonary support, may need re-intubation, high risk -: Serial H/H monitoring -: Protonix 40mg IV q12h * Poor prognosis * AM lab: CMP, CBC, PT/PTT/INR * PCXR in am
--- NOTE | 2017-11-21 21:20 | RAD ---
SINGLE VIEW OF THE ABDOMEN: 11/21/17 COMPARISON: None. HISTORY: Dobhoff placement. FINDINGS: Single view of the abdomen shows a Dobhoff tube curled in the left upper quadrant of the abdomen like ly within the stomach. There is air filled colon without significant distended loops of small bowel. IMPRESSION: Dobhoff tube located in the stomach. POS: LUC
[2017-11-21] MEDS: Rifaximin 550 MG TAB PO SCH (21:59)
[2017-11-22] MEDS: Clindamycin/D5W 900 MG in Premix Bag 1 BAG IVPB SCH ×4 (06:00→23:53)
[2017-11-22 06:25] LABS: ALT (SGPT) 1407 U/L (8-55); AST (SGOT) 1566 U/L (5-34); Albumin 2.5 g/dL (3.4-4.8); Alkaline Phosphatase 128 U/L (40-150); Anion Gap 10 mmol/L (10-20); BUN (Urea Nitrogen) 37 mg/dL (8.4-25.7); Bilirubin, Total 1.4 mg/dL (0.2-1.2); Calc. Creatinine Clearance 76 mL/min (70-130); Calcium 6.3 mg/dL (7.8-10.44); Carbon Dioxide 19 mmol/L (23-31); Chloride 118 mmol/L (98-107); Estimated GFR-MDRD 84; Globulin 2.7 g/dL (2.4-3.5); Glucose 109 mg/dL (80-115); Potassium 3.2 mmol/L (3.5-5.1); Protein, Total 5.2 g/dL (5.8-8.1); Sodium 144 mmol/L (136-145)
[2017-11-22] MEDS: Dextrose 5% in Water 1,000 ML IV SCH ×2 (06:46→23:56)
[2017-11-22 07:23] LABS: Hemoglobin 9.4 g/dL (14.0-18.0); Mean Corpuscular HGB CONC 33.3 g/dL (32.0-36.0); Mean Corpuscular Hemoglobin 28.8 pg (27.0-31.0); Mean Corpuscular Volume 86.6 fl (80.0-94.0); Mean Platelet Volume 6.8 fL (7.4-10.4); Platelet Count 400 thou/uL (130-400); Red Blood Cell (RBC) Count 3.27 mill/uL (4.70-6.10); White Blood Cell (WBC) Count 15.6 thou/uL (4.8-10.8)
[2017-11-22 07:29] LABS: Prothrombin Time 45.3 SEC (12.0-14.7)
[2017-11-22 07:31] LABS: INR-International Normal Ratio 4.5
[2017-11-22 08:25] LABS: Band 6 % (5-11); Burr Cells SLIGHT = 2-5 cells (100X) (0-1/hpf); Lymphocytes 8 % (21-51); MDiff Complete? YES; Monocytes 2 % (0-10); Neutrophil 84 % (42-75); PLT Morphology Comment Appears Adequate; Polychromasia MODERATE = 3-4 cells (100X) (0-2/hpf)
[2017-11-22] MEDS ORDERED: Phytonadione 10 MG/ML AMP SC SCH (08:30)
[2017-11-22] MEDS: Rifaximin 550 MG TAB PO SCH ×2 (09:16→21:13)
[2017-11-22] MEDS: Folic Acid 1 MG TAB PO SCH (09:17)
[2017-11-22] MEDS: Pantoprazole 40 MG VIAL IVP SCH ×2 (09:18→21:13)
--- NOTE | 2017-11-22 09:21 | PRG ---
DATE OF SERVICE: 11/22/2017 SERVICE: Pulmonary Medicine. INTERVAL HISTORY: The patient is doing outstanding from a cardiovascular and respiratory standpoint. Today, his mentation is the best it has been. We tried to extubate yesterday. Unfortunately, he r eally could not protect his airway. He got into trouble roughly 3-4 hours later and we reintubated h im before he could have a respiratory event. This morning, I am pleased to see that he is awake and alert. He is cooperative. He is moving all 4 extremities to command. He appears to be fairly comfo rtable. PHYSICAL EXAMINATION: VITAL SIGNS: Afebrile, pulse 103, blood pressure 139/87, respirations 20, saturation 99% on 21% FiO2 and a PEEP of 5. GENERAL: The patient is awake and alert. He is in minimal distress associated with having a tube in his throat. HEENT: Normocephalic, atraumatic. Sclerae are white, conjunctivae pink. Oral and nasal mucosa is m oist without lesions. LUNGS: Decent air entry. There is no prolonged expiratory phase. Dependent crackles are minimal. HEART: Normal rate and regular. ABDOMEN: Soft, nontender, nondistended. Bowel sounds are positive. MUSCULOSKELETAL: No cyanosis or clubbing. There is no pitting in the bilateral lower extremities. NEUROLOGIC: Grossly nonfocal. LABORATORY DATA: WBC 15.6, hemoglobin 9.4, platelets 400,000. INR has increased to 4.5 and potassiu m 3.2. Basic metabolic profile is otherwise unremarkable. Calcium 6.3, albumin 2.5. AST and ALT ar e trending downward beautifully to 1500 and 1400, respectively. Total bilirubin is improving. Aceta minophen 6.0. Blood cultures x2 and urine culture remain negative. Respiratory culture is negative to date, but there were few gram positive cocci and few gram variable rods identified. Final culture is currently pending. IMAGING: KUB demonstrates an enteric catheter coiled in the stomach. The colon appears to be full o f air. ASSESSMENT: 1. Acute hypoxic respiratory failure, resolving. 2. Acute blood loss anemia. 3. Hemorrhagic shock, resolved. 4. Metabolic encephalopathy, improving. 5. Acute kidney injury, resolved. 6. Shock liver. 7. Hypercoagulable state secondary to possible Coumadin overuse. PLAN: We will continue our supportive care. I will feed him and replace potassium today. I will re peat some electrolytes tomorrow morning. If his mentation continues to clear by tomorrow, we will co nsider him for extubation. Because he had a significant alcohol use, we will use Precedex over the n ext 24 hours to see if we can keep him a touch more comfortable and prevent him from waking up jamia mcintyre CRITICAL CARE TIME: 30 minutes.
--- NOTE | 2017-11-22 11:40 | PRG ---
DATE OF SERVICE: 11/21/2017 SUBJECTIVE: Mr. Bolivar is intubated overnight, extubated and then reintubated secondary to altered mental status. OBJECTIVE: VITAL SIGNS: Temperature max 102.3, temperature current 102.3; respirations 13, blood pressure 140/7 3. In's and out's 1718 and 1965, has negative including massive transfusion protocol started i n the emergency room. HEENT: He is not icteric. LUNGS: Clear. CARDIAC: Heart regular without clicks or murmurs. ABDOMEN: Nontender, slightly protuberant shifting dullness, no fluid wave. EXTREMITIES: No clubbing, cyanosis or edema. LABORATORY STUDIES: Acetaminophen was less than 6. Sodium 145, potassium 3.6, chloride 109, BUN and creatinine are 81 and 1.7. Magnesium was 2.7, phosphorus 4.4, bilirubin was 1.5, AST and ALT were 3 500 and 1980, alkaline phosphatase is 118, albumin was 3.3, protein was 6.1, white count 14.5, hemogl obin 8.5, platelet count 431. ASSESSMENT: 1. Gastrointestinal bleeding, resolved. It seems that once his excessively abnormal INR was correct ed, his bleeding stopped. It is unclear if this was related to overdose on Coumadin or related to fu lminant liver failure. 2. Fulminant liver failure. It is unclear if this is a primary problem or secondary to his bleed an d shock liver, which I suspect. 3. Encephalopathy. 4. Coagulopathy, improving. 5. Fever. 6. Altered mental status. This could be related to hepatic encephalopathy or anoxic injury. RECOMMENDATIONS: 1. Multivitamin, thiamine, and folate. The patient needs some dextrose as well as he is at risk for hypoglycemia with liver showing significant necrosis. 2. Continue IV PPI. 3. Continue antibiotics. 4. Recheck INR and ammonia tomorrow. 5. Add Xifaxan. At this time, the patient is not a candidate for further evaluation of bleeding sites, as he is not b leeding now. We can readdress that depending on how he recovers from this entire episode.
--- NOTE | 2017-11-22 11:49 | PRG ---
DATE OF SERVICE: 11/21/2017 SUBJECTIVE: Mr. Bolivar attempted to extubate today, but with altered mental status, he cannot remai n extubated and so he was reintubated. MEDICATIONS: P.r.n. acetaminophen, levofloxacin, clindamycin, fentanyl p.r.n., folic acid 1 mg daily , lactulose 30 b.i.d., Ativan p.r.n., morphine p.r.n., Protonix 40 every 12 hours, propofol p.r.n., t hiamine 10 mg daily, and vancomycin. OBJECTIVE: VITAL SIGNS: Temperature 102.3, respirations 18, pulse 103 to 86, blood pressure 140/73. GENERAL: He opens his eyes, does not follow commands. LUNGS: Clear. HEART: Regular rate and rhythm. ABDOMEN: Soft and nontender. No palpable hepatosplenomegaly. LABORATORY STUDIES: White count 14.5, hemoglobin was 8.5, platelet count 431. INR is still elevated at 2.3, pH 7.56 this morning, potassium 3.6, BUN and creatinine 81 and 1.7. Lactic acid found at 2. 6, magnesium is 2.7, bilirubin is 1.5, AST and ALT are 335 and 119, alkaline phos 118. Acetaminophen level less than 6. In's and out's from the emergency room was 1732 and 1720 yesterday, today was .
[2017-11-22] MEDS: Vancomycin HCl 1 GM in Premix Bag 1 BAG IVPB SCH ×2 (12:30→23:53)
--- NOTE | 2017-11-22 16:22 | OP ---
DATE OF SERVICE: 11/20/2017 SERVICE: Pulmonary Medicine. PROCEDURE: Right-sided radial artery catheter placement. CONSENT: This was an emergent procedure performed secondary to hemorrhagic shock. Patient was unabl e to provide consent secondary to intubation and sedation. STAFF PHYSICIAN: Cas Acosta M.D. MEDICATIONS USED: None. INDICATIONS: Hemorrhagic shock. DESCRIPTION OF PROCEDURE: A timeout was performed by the procedure team and patient. The patient wa s positively identified using name and date of . The procedure site was marked. Vital sign mon itoring was accomplished by noninvasive hemodynamic monitoring, pulse oximetry, and telemetry. With patient in a supine position, the right wrist was placed in extended position and radial arteria l pulse was palpated. The skin was prepped and draped in usual sterile fashion. The radial artery w as cannulated under direct palpation on the first attempt with return of bright red pulsatile blood. The arterial catheter was inserted without difficulty and sutured in place with 3-0 silk sutures x1. The catheter was attached to monitor. Appropriate arterial waveform was noted. A sterile dressing was applied and the procedure was terminated. ESTIMATED BLOOD LOSS: Two milliliters. COMPLICATIONS: None.
--- NOTE | 2017-11-22 16:40 | OP ---
DATE OF PROCEDURE: 11/22/2017 SERVICE: Pulmonary Medicine. PROCEDURE: Emergent endotracheal intubation. CONSENT: Procedure was performed emergently secondary to clinical condition and respiratory failure. STAFF PHYSICIAN: Cas Acosta M.D. MEDICATION USED: Propofol 100 mg IV push. PREOPERATIVE DIAGNOSES: 1. Acute hypoxic respiratory failure. 2. Metabolic encephalopathy. POSTOPERATIVE DIAGNOSES: 1. Acute hypoxic respiratory failure. 2. Metabolic encephalopathy. DESCRIPTION OF PROCEDURE: Vital sign monitoring was accomplished by noninvasive hemodynamic monitori ng, pulse oximetry, and telemetry. In the seated position, the patient was preoxygenated with bag va lve mask ventilation and maintained with saturations of 100%. Following induction of anesthesia, a # 4 GlideScope was inserted through the mouth offering clear identification of the posterior oropharynx and laryngeal structures with a grade 1 view. A 7.5-Indonesian endotracheal tube was visualized passing through the vocal cords. Placement was confirmed by condensation in the endotracheal tube, colorime tric capnography, and by axillary chest auscultation. The endotracheal tube was secured at 24 cm, me asured at the teeth. The patient was placed on mechanical ventilation with good return of volumes. Post-procedure x-ray demonstrated good location for the endotracheal tube inside the trachea. ESTIMATED BLOOD LOSS: None. COMPLICATIONS: None.
--- NOTE | 2017-11-22 17:47 | PDOC.PN ---
- Subjective Encounter Start Date: 11/22/17 Encounter Start Time: 13:30 -: non-verbal, old records requested/rev Pt seen and examined, chart reviewed in its entirety. This is my first visit with this patient Pt awake, nodding and shaking his head appropriately. Planning for colonoscopy today. No evidence of further bleeding. Pt with 6 units FFP, cryo, FFP. EGD normal. family at bedside and updated 10 point ROS performed and neg for all systems except as per HPI - Objective MAR Reviewed: Yes Vital Signs & Weight: Vital Signs (12 hours) Temp Pulse Resp BP Pulse Ox 11/22/17 17:36 90 116/59 L 11/22/17 16:00 99.0 F 18 11/22/17 14:17 86 89/48 L 11/22/17 14:00 16 11/22/17 12:00 99.0 F 17 11/22/17 11:25 92 125/58 L 11/22/17 10:00 16 11/22/17 08:00 19 11/22/17 07:54 99.2 F 96 17 146/70 H 100 11/22/17 07:36 99.2 F 11/22/17 06:00 15 Weight Admit Weight 151 lb 7.312 oz Weight 151 lb 7.312 oz Most Recent Monitor Data Heart Rate from ECG 81 NIBP 94/60 NIBP BP-Mean 74 Respiration from ECG 20 SpO2 100 I&O: 11/21/17 11/22/17 11/23/17 06:59 06:59 06:59 Intake Total 1732.2 2115 880 Output Total 1720 3175 835 Balance 12.2 -1060 45 Result Diagrams: 11/22/17 06:54 11/22/17 05:46 Additional Labs: Accuchecks 11/22/17 11/22/17 11/22/17 17:21 13:13 02:46 POC Glucose 141 H 161 H 138 H Radiology Reviewed by me: Yes EKG Reviewed by me: Yes Phys Exam - Physical Examination Constitutional: NAD HEENT: PERRLA, moist MMs, sclera anicteric, oral pharynx no lesions Neck: no nodes, no JVD, supple, full ROM Respiratory: no wheezing, no rales, no rhonchi, clear to auscultation bilateral Cardiovascular: RRR, no significant murmur, no rub tachy Gastrointestinal: soft, non-tender, no distention, positive bowel sounds Musculoskeletal: pulses present, edema present Neurological: non-focal, normal sensation, moves all 4 limbs Lymphatic: no nodes Skin: no rash, normal turgor, cap refill <2 seconds Dx/Plan (1) GABY (acute kidney injury) Code(s): N17.9 - ACUTE KIDNEY FAILURE, UNSPECIFIED Status: Acute Comment: Improved with volume replacement, avoid nephrotoxic agent and limit contrast exposure, serial monitoring (2) Acute GI bleeding Code(s): K92.2 - GASTROINTESTINAL HEMORRHAGE, UNSPECIFIED Status: Acute Comment: Suspected lower tract source, s/p 6u PRBC's, serial H/H, Protonix 40mg IV q12h, likely will need colonoscopy if clinically stabilizing (3) Acute blood loss anemia Code(s): D62 - ACUTE POSTHEMORRHAGIC ANEMIA Status: Acute Comment: s/p massive transfusion protocol with 6u PRBC's, H/H stabilizing currently, monitor for recurrence, CBC (4) Acute respiratory failure with hypoxia Code(s): J96.01 - ACUTE RESPIRATORY FAILURE WITH HYPOXIA Status: Acute Comment: Extubated and reintubated, may be ready for attempt at re-extubating in the AM (5) Alcohol abuse Code(s): F10.10 - ALCOHOL ABUSE, UNCOMPLICATED Status: Chronic (6) Aspiration pneumonia Code(s): J69.0 - PNEUMONITIS DUE TO INHALATION OF FOOD AND VOMIT Status: Acute Qualifiers: Aspiration pneumonia type: due to gastric secretions Laterality: bilateral Lung location: unspecified part of lung Qualified Code(s): J69.0 - Pneumonitis due to inhalation of food and vomit Comment: Suspected, add Clindamycin 900mg IV q6h, Vancomycin 1gm IV q12h, pulmonary support, monitor cx results (7) Coagulopathy Status: Acute Comment: Severe coagulopathy improved with FFP, monitor closely , serial PT/PTT/INR (8) Hemorrhagic shock Code(s): R57.8 - OTHER SHOCK Status: Acute Comment: See above, IVF's, blood product administration, pressor support as needed (9) Lactic acidosis Code(s): E87.2 - ACIDOSIS Status: Acute Comment: Improved with volume and blood product resuscitation, serial monitoring (10) Shock liver Code(s): K72.00 - ACUTE AND SUBACUTE HEPATIC FAILURE WITHOUT COMA Status: Acute Comment: LFT's continuing to elevate, suspected due acute blood loss, hypoperfusion - Plan cont current plan of care, plan discussed w/ family, PT/OT * .
[2017-11-23 04:56] LABS: Prothrombin Time 48.9 SEC (12.0-14.7)
[2017-11-23 04:57] LABS: PTT 74.3 SEC (22.9-36.1)
[2017-11-23 05:07] LABS: #Basophils 0.1 thou/uL (0.0-0.2); #Eosinphils 0.3 thou/uL (0.0-0.7); #Lymphocytes 1.1 thou/uL (1.20-3.40); #Monocytes 0.9 thou/uL (0.11-0.59); #Neutrophils 10.2 thou/uL (1.40-6.50); %Basophils 0.4 % (0.0-1.0); %Eosinophils 2.1 % (0.0-10.0); %Lymphocytes 8.8 % (21.0-51.0); %Neutrophils 81.8 % (42.0-75.0); Hemoglobin 7.7 g/dL (14.0-18.0); MDiff Complete? YES; Mean Corpuscular HGB CONC 32.6 g/dL (32.0-36.0); Mean Corpuscular Hemoglobin 28.2 pg (27.0-31.0); Mean Corpuscular Volume 86.6 fl (80.0-94.0); Mean Platelet Volume 6.5 fL (7.4-10.4); PLT Morphology Comment Appears Adequate; Platelet Count 208 thou/uL (130-400); Polychromasia SLIGHT = 2-3 cells (100X) (0-2/hpf); Red Blood Cell (RBC) Count 2.73 mill/uL (4.70-6.10); White Blood Cell (WBC) Count 12.5 thou/uL (4.8-10.8)
[2017-11-23] MEDS: Clindamycin/D5W 900 MG in Premix Bag 1 BAG IVPB SCH ×4 (05:11→23:25)
[2017-11-23 05:19] LABS: Anion Gap 9 mmol/L (10-20); BUN (Urea Nitrogen) 32 mg/dL (8.4-25.7); Calc. Creatinine Clearance 70 mL/min (70-130); Calcium 7.4 mg/dL (7.8-10.44); Carbon Dioxide 23 mmol/L (23-31); Chloride 112 mmol/L (98-107); Estimated GFR-MDRD 76; Glucose 137 mg/dL (80-115); Magnesium 2.7 mg/dL (1.6-2.6); Potassium 3.5 mmol/L (3.5-5.1); Sodium 140 mmol/L (136-145)
[2017-11-23] MEDS ORDERED: Potassium Phosphate 30 MMOL in Sodium Chloride 0.9% 250 ML 250 ML IVPB SCH (08:45)
[2017-11-23] MEDS: Folic Acid 1 MG TAB PO SCH (09:16)
[2017-11-23] MEDS: Pantoprazole 40 MG VIAL IVP SCH ×2 (09:16→21:45)
[2017-11-23] MEDS: Rifaximin 550 MG TAB PO SCH ×2 (09:16→21:45)
[2017-11-23] MEDS ORDERED: Metoclopramide HCl 10 MG/2 ML VIAL IVP SCH (10:15)
[2017-11-23 10:26] LABS: ALT (SGPT) 1124 U/L (8-55); AST (SGOT) 565 U/L (5-34); Albumin 2.8 g/dL (3.4-4.8); Alkaline Phosphatase 139 U/L (40-150); Bilirubin, Direct 0.9 mg/dL (0.1-0.3); Bilirubin, Total 1.5 mg/dL (0.2-1.2); Protein, Total 5.6 g/dL (5.8-8.1)
--- NOTE | 2017-11-23 10:52 | PRG ---
DATE OF SERVICE: 11/23/2017 SERVICE: Pulmonary Medicine. INTERVAL HISTORY: The patient is doing fine from a cardiovascular and respiratory standpoint. He is breathing comfortably. He is following all commands. He demonstrates decent strength. He picks his head up off the bed, stick out his tongue, and moves all four extremities. Otherwise, there has been no interval change to his condition. OBJECTIVE: VITAL SIGNS: Afebrile, pulse 85, blood pressure 85/48, respirations 19, saturation 100% on 21% FiO2 and a PEEP of 5. GENERAL: The patient is awake and alert, in no apparent distress. LUNGS: Decent air entry. There is no prolonged expiratory phase, wheezing, rhonchi, or crackles present. HEART: Normal rate, regular. ABDOMEN: Soft, nontender, nondistended. Bowel sounds are positive. MUSCULOSKELETAL: No cyanosis or clubbing. There is no pitting in the bilateral lower extremities. NEUROLOGIC: Grossly nonfocal. LABORATORY DATA: WBC 12.5, hemoglobin 7.7, platelets were 208,000. Neutrophil count is settling down to 82%. INR is up trending to 5.0. Chloride 112. Basic metabolic profile is otherwise unremarkable. Phosphorus is low and magnesium is 2.7. Urinalysis is unremarkable. Respiratory culture is growing Staph aureus collected from the 27. Blood cultures x2 are unremarkable. ASSESSMENT: 1. Acute hypoxic respiratory failure, resolving. 2. Acute blood loss anemia. 3. Healthcare-associated pneumonia secondary to aspiration event. 4. Hemorrhagic shock, resolved. 5. Metabolic encephalopathy, resolving. 6. Acute kidney injury, resolved. 7. Shock liver, improving. 8. Hypercoagulable state secondary to possible Coumadin overuse. DISCUSSION AND PLAN: We will put him on a spontaneous breathing trial once again. If he meets criteria, extubation will be considered. I will schedule some Reglan for him as he has residuals were a little marginal. I do think that we need to interrupt feeding at this point. Precedex will be used on an as needed basis moving forward. Recheck some laboratories tomorrow morning. Potassium and phosphorus will be replaced. We have already given 2 units of FFP. Liver function studies will be reevaluated in the morning as well as an INR. Critical care time: 30 minutes. MTDD
[2017-11-23] MEDS: Vancomycin HCl 1 GM in Premix Bag 1 BAG IVPB SCH (10:55)
--- NOTE | 2017-11-23 12:10 | PRG ---
DATE OF SERVICE: 11/22/2017 SUBJECTIVE: Mr. Bolivar does look more awake today. He is on Rocephin and clindamycin, dexmedetomid ine for sedation, D5 water 50 an hour, folic acid, multivitamin, thiamine, lactulose b.i.d., Protonix 40 q.12 hours, propofol, Xifaxan 550 b.i.d. and vancomycin. Octreotide has been stopped as he had no varices. OBJECTIVE: VITAL SIGNS: T-max 102 on the , 99 today. Pulse 103-90, blood pressure 116/59. Ins and outs 88 0 and 335. Moreno output 835 today, 3175 yesterday. GENERAL: Nurses note he has had two stools that have been little bit black. He opens his eyes, does not follow commands yet. He still has some sedation on board. LUNGS: Clear. HEART: Regular rate and rhythm. ABDOMEN: Protuberant, but nontender. LABORATORY DATA: White count 15,000, hemoglobin 9.4, platelet count 400, neutrophils 86 and 6 bands. INR is 4.5 today. He was given vitamin K. Sodium 144, potassium 3.2, bicarbonate 19, chloride 118 , BUN 37, creatinine 0.9, bilirubin down to 1.4, AST down to 1566, ALT 1406 and alkaline phosphatase 128. ASSESSMENT: 1. Acute liver failure, likely shock liver, improving. Bilirubin is actually coming down a bit, oth erwise not much changed. There are no signs of fulminant liver failure. The patient's glucose is ho lding steady and he is more alert. INR is up; however, I suspect this is all from shock liver from s evere hypotension, bleeding on admission. 2. Severe coagulopathy improved with replacement of coagulation products. We gave him some vitamin K today. We will check it again tomorrow. There are no signs of active bleeding. I wonder if he to ok an overdose of his Coumadin or therapeutic misadventure. 3. Alcoholism. No signs of DTs at this time, on multivitamin, thiamine, folate and dextrose. 4. Gastrointestinal bleed of unclear etiology. No signs of varices. 5. Respiratory failure, on ventilator, actually more for airway protection at this time. PLAN: Recheck INR tomorrow and labs. If it remains higher, we will give him some FFP.
[2017-11-23 12:56] LABS: Hemoglobin 7.9 g/dL (14.0-18.0); Platelet Count 178 thou/uL (130-400)
[2017-11-23 15:28] LABS: Hemoglobin 8.7 g/dL (14.0-18.0)
--- NOTE | 2017-11-23 19:15 | PRG ---
DATE OF SERVICE: 11/23/2017 SUBJECTIVE: Mr. Bolivar is now extubated and awake. He has no complaints. He denies any abdominal pain. He has had two bowel movements today. He has had no overt bleeding. He had received 2 units of FFP today secondary to INR of 5. I have asked him if he had took too many of his Coumadin pills. He does not think so. Otherwise, he is a little bit foggy. He does not know today is . PRESENT MEDICATIONS: Cipro, clindamycin, folic acid, lactulose 30 b.i.d., Protonix 40 mg IV q.12 santiago rs, rifaximin 550 p.o. b.i.d., thiamine, vancomycin. OBJECTIVE: VITAL SIGNS: Temperature 98, pulse is 100, blood pressure 129/79; I and O 1480 and 455. ABDOMEN: Slight protuberant shifting dullness, seems to be fluid wave present. EXTREMITIES: No clubbing, cyanosis or edema. LABORATORY DATA: White count was 12.5 today, hemoglobin 7.9 at 1200 and 8.7 at 1500; platelet count 208. INR was 5 today. He received 2 units of FFP for that. Chemistry: Sodium 140, potassium 3.5, BUN and creatinine 32 and 0.98, bilirubin is 1.5, AST is down to 565, ALT is down to 1124, alkaline p hosphatase 139, albumin 2.8. ASSESSMENT: 1. Acute liver injury likely related to shock from bleeding. 2. Severe coagulopathy, it is really unclear what has happened. He was found down at home, it is un clear if he took too much of his Coumadin. We will have more discussion as he becomes more awake. 3. History of alcohol abuse in the past. 4. Markedly improved liver function but INR still remains elevated. RECOMMENDATIONS: 1. I will go ahead and start some vitamin K daily for a couple of days. 2. Monitor INR. 3. Check hepatitis panel. 4. Follow liver function test.
[2017-11-23] MEDS: Dextrose 5% in Water 1,000 ML IV SCH (21:47)
--- NOTE | 2017-11-23 22:14 | PDOC.PN ---
- Subjective Encounter Start Date: 11/23/17 Encounter Start Time: 12:10 Pt extubated, doing well. I was surprised to learn he did not have a colonoscopy last evening as i was told, and have reviewed the GI notes. INR up to 5.0 today, Dr Perkins plans to give dialy Vit K and hope it improves. no F/c,, no N/.V/D/C, no CP or MARSHA. Being advanced to full liquid diet today 10 point ROS performed and neg for all systems except as above - Objective MAR Reviewed: Yes Vital Signs & Weight: Vital Signs (12 hours) Temp Pulse Pulse Resp BP Pulse Ox Pulse Ox 11/23/17 20:00 97.8 F 105 H 21 H 98 11/23/17 19:00 97.8 F 11/23/17 15:57 107 H 118/71 98 11/23/17 15:27 98.0 F 100 11/23/17 12:00 97.9 F 11/23/17 10:26 98.0 F Weight Admit Weight 151 lb 7.312 oz Weight 154 lb 1.65 oz Most Recent Monitor Data Heart Rate from ECG 96 NIBP 116/65 NIBP BP-Mean 83 Respiration from ECG 27 SpO2 99 I&O: 11/22/17 11/23/17 11/24/17 06:59 06:59 06:59 Intake Total 2115 3651 2475 Output Total 3175 1380 765 Balance -1060 2271 1710 Result Diagrams: 11/23/17 15:04 11/23/17 04:27 Additional Labs: Accuchecks 11/23/17 00:28 POC Glucose 112 H Phys Exam - Physical Examination Constitutional: NAD HEENT: PERRLA, moist MMs, sclera anicteric, TM's clear Neck: no nodes, no JVD, supple, full ROM Respiratory: no wheezing, no rales, no rhonchi, clear to auscultation bilateral Cardiovascular: RRR, no significant murmur, no rub Gastrointestinal: soft, non-tender, no distention, positive bowel sounds Musculoskeletal: pulses present, edema present Neurological: non-focal, normal sensation, moves all 4 limbs Lymphatic: no nodes Psychiatric: A&O x 3 Skin: no rash, normal turgor, cap refill <2 seconds Dx/Plan (1) GABY (acute kidney injury) Code(s): N17.9 - ACUTE KIDNEY FAILURE, UNSPECIFIED Status: Resolved Comment : Improved with volume replacement, avoid nephrotoxic agent and limit contrast exposure, serial monitoring (2) Acute GI bleeding Code(s): K92.2 - GASTROINTESTINAL HEMORRHAGE, UNSPECIFIED Status: Acute Comment: Suspected lower tract source, s/p 6u PRBC's, serial H/H, Protonix 40mg IV q12h, Hgb down to 7.7 overnight. GI ordered daily vitamin K, correct coagulopathy. ? related to shock liver (3) Acute blood loss anemia Code(s): D62 - ACUTE POSTHEMORRHAGIC ANEMIA Status: Acute Comment: s/p massive transfusion protocol with 6u PRBC's, H/H stabilizing currently, monitor for recurrence, CBC (4) Acute respiratory failure with hypoxia Code(s): J96.01 - ACUTE RESPIRATORY FAILURE WITH HYPOXIA Status: Resolved Comment: Extubated and reintubated, re-extubated 11/23. Pulm following. (5) Alcohol abuse Code(s): F10.10 - ALCOHOL ABUSE, UNCOMPLICATED Status: Chronic (6) Aspiration pneumonia Code(s): J69.0 - PNEUMONITIS DUE TO INHALATION OF FOOD AND VOMIT Status: Acute Qualifiers: Aspiration pneumonia type: due to gastric secretions Laterality: bilateral Lung location: unspecified part of lung Qualified Code(s): J69.0 - Pneumonitis due to inhalation of food and vomit Comment: Suspected, add Clindamycin 900mg IV q6h, Vancomycin 1gm IV q12h, pulmonary support, monitor cx results (7) Coagulopathy Status: Acute Comment: Severe coagulopathy improved with FFP, monitor closely , serial PT/PTT/INR, mre FFP earlier, Vit K ordered by GI (8) Hemorrhagic shock Code(s): R57.8 - OTHER SHOCK Status: Acute Comment: See above, IVF's, blood product administration, pressor support as needed (9) Lactic acidosis Code(s): E87.2 - ACIDOSIS Status: Acute Comment: Improved with volume and blood product resuscitation, serial monitoring (10) Shock liver Code(s): K72.00 - ACUTE AND SUBACUTE HEPATIC FAILURE WITHOUT COMA Status: Acute Comment: LFT's continuing to elevate, suspected due acute blood loss, hypoperfusion - Plan cont current plan of care, continue antibiotics, PT/OT, out of bed/ambulate * .
[2017-11-23 23:29] LABS: Vancomycin, Trough 24.7 ug/mL
[2017-11-24] MEDS ORDERED: Vancomycin HCl 750 MG in Sodium Chloride 0.9% 250 ML 250 ML IVPB SCH (01:00)
[2017-11-24] MEDS: Clindamycin/D5W 900 MG in Premix Bag 1 BAG IVPB SCH (05:43)
[2017-11-24 06:41] LABS: INR-International Normal Ratio 2.8; Prothrombin Time 30.4 SEC (12.0-14.7)
[2017-11-24 07:28] LABS: #Eosinphils 0.3 thou/uL (0.0-0.7); #Lymphocytes 1.1 thou/uL (1.20-3.40); #Monocytes 1.1 thou/uL (0.11-0.59); #Neutrophils 10.6 thou/uL (1.40-6.50); %Basophils 0.1 % (0.0-1.0); %Eosinophils 2.6 % (0.0-10.0); %Monocytes 8.3 % (0.0-10.0); Hemoglobin 8.2 g/dL (14.0-18.0); Mean Corpuscular HGB CONC 32.1 g/dL (32.0-36.0); Mean Corpuscular Hemoglobin 27.8 pg (27.0-31.0); Mean Corpuscular Volume 86.6 fl (80.0-94.0); Mean Platelet Volume 7.5 fL (7.4-10.4); Platelet Count 187 thou/uL (130-400); RBC Distribution Width 15.4 % (11.5-14.5); Red Blood Cell (RBC) Count 2.93 mill/uL (4.70-6.10)
[2017-11-24] MEDS: Rifaximin 550 MG TAB PO SCH ×2 (09:07→20:14)
[2017-11-24] MEDS: Phytonadione 10 MG/ML AMP PO SCH (09:07)
[2017-11-24] MEDS: Pantoprazole 40 MG VIAL IVP SCH ×2 (09:08→20:16)
[2017-11-24] MEDS: Folic Acid 1 MG TAB PO SCH (09:08)
--- NOTE | 2017-11-24 10:30 | PRG ---
DATE OF SERVICE: 11/24/2017 SERVICE: Pulmonary Medicine INTERVAL HISTORY: The patient is doing really well from a cardiovascular and respiratory standpoint. He has been weaned down to room air. He denies any chest discomfort, nausea, vomiting. He is tole rating p.o. beautifully. Otherwise, there has been no interval change to his condition. PHYSICAL EXAMINATION: VITAL SIGNS: Afebrile currently. Pulse 108, blood pressure 125/85, respirations 17, saturation 98% on room air. GENERAL: The patient is awake, alert, no apparent distress. LUNGS: Decent air entry. There is no prolonged expiratory phase or wheezing present. HEART: Normal rate, regular. ABDOMEN: Soft, nontender, nondistended. Bowel sounds are positive. MUSCULOSKELETAL: No cyanosis or clubbing. There is trace pitting in the bilateral lower extremities . NEUROLOGIC: Grossly nonfocal. LABORATORY DATA: WBC 13.0, hemoglobin 8.2, platelets 187,000. INR has down trended to 2.8. Chlorid e 112 and down trending, sodium of 140. Basic metabolic profile is essentially unremarkable. AST an d ALT are down trending. Total bilirubin is stable at 1.5. Ammonia 35, phosphorus 3.0. Sputum cult ure is growing Staph aureus, which is sensitive to vancomycin. Blood cultures x2 are otherwise unrem arkable. ASSESSMENT: 1. Acute hypoxic respiratory failure, resolved. 2. Acute blood loss anemia, stable. 3. Healthcare-associated pneumonia secondary to aspiration event, growing methicillin-sensitive Stap hylococcus aureus. 4. Hemorrhagic shock, resolved. 5. Metabolic encephalopathy, resolved. 6. Shock liver, improving. 7. Hypercoagulable state secondary to Coumadin overdose. DISCUSSION AND PLAN: We will give him a lab holiday tomorrow. He can be transitioned out of the ICU to the medical unit. Pulmonary Critical Care will continue to follow for the time being.
[2017-11-24] MEDS ORDERED: Carvedilol 6.25 MG TAB PO SCH (11:00)
[2017-11-24 13:51] VITALS: BMI 23.2
[2017-11-24 14:47] LABS: HBCM Index 0.09 S/CO (0-0.79); HBSAg Index 0.35 S/CO (0-0.99); Hep A IgM AB Non-Reactive (NonReactive); Hep A IgM S/CO 0.12 S/CO (0-0.79); Hep B Surf Ag Non-Reactive S/CO (NonReactive); Hep C IgG Ab Non-Reactive (NonReactive); Hep C Index 0.24 S/CO (0-0.79); Hepatitis B Core IGM Abs Non-Reactive (NonReactive)
--- NOTE | 2017-11-24 15:02 | PRG ---
DATE OF SERVICE: 11/24/2017 SUBJECTIVE: Mr. Bolivar is without complaints. Nurses note no bleeding. He is on a regular diet. MEDICATIONS: Augmentin, folic acid, lactulose, pantoprazole, vitamin K, Rifaximin. PHYSICAL EXAMINATION: VITAL SIGNS: Heart rate 104, temperature 98, respirations 18, blood pressure 130/82. LUNGS: Clear. HEART: Regular rate and rhythm without clicks, rubs or murmurs. ABDOMEN: Nontender, some shifting dullness with slight fluid wave. LABORATORY STUDIES: White count 13, hemoglobin 8.2, platelet count 187. INR 2.8, bilirubin was 1.5 yesterday. AST and ALT are down to 565 and 1124. ASSESSMENT: 1. No GI bleeding. 2. Coagulopathy, resolved. One wonders if this was from an overdose on his Coumadin. He denied lonnie t to me, but there was notes in the ER records of previous suicide attempt related to some of his car diac medicines. He denies that as well, that is in the ER note from several years ago [facility]. 3. Elevated liver function tests, likely related to shock liver, although there are no signs of fulm inant hepatic failure. We will check acute hepatitis panel. 4. Gastrointestinal bleeding was likely related to severe coagulopathy. EGD was normal. We will co nsider a colonoscopy at a later date once his liver recovers.
[2017-11-24] MEDS: Amoxicillin/Potassium Clav 875 MG TAB PO SCH (20:14)
[2017-11-24] MEDS: Carvedilol 6.25 MG TAB PO SCH (20:15)
--- NOTE | 2017-11-24 21:31 | PDOC.PN ---
- Subjective Encounter Start Date: 11/24/17 Encounter Start Time: 13:10 PT sleeping soundly. repsonded well to vitamin K and FFP, INR down to 2.8, no report of active bleeding. Has orders to transfer tot he floor when a bed is available. NO F/C, no N./V.D.C, no CP or sOB 10 point ROS performed and neg for all systems except as per hPI - Objective MAR Reviewed: Yes Vital Signs & Weight: Vital Signs (12 hours) Temp Pulse Pulse Pulse Resp BP BP 11/24/17 20:15 116/59 L 11/24/17 20:00 97.5 F L 105 H 18 11/24/17 19:00 97.5 F L 11/24/17 16:00 98.0 F 11/24/17 11:51 98.1 F 11/24/17 11:20 92 118 H 124/78 11/24/17 11:07 116/59 L 11/24/17 11:00 98.0 F BP Pulse Ox 11/24/17 20:15 11/24/17 20:00 100 11/24/17 19:00 11/24/17 16:00 11/24/17 11:51 11/24/17 11:20 159/111 H 11/24/17 11:07 11/24/17 11:00 Weight Admit Weight 151 lb 7.312 oz Weight 153 lb 7.056 oz Most Recent Monitor Data Heart Rate from ECG 95 NIBP 122/73 NIBP BP-Mean 96 Respiration from ECG 20 SpO2 99 I&O: 11/23/17 11/24/17 11/25/17 06:59 06:59 06:59 Intake Total 3651 3225 2491 Output Total 1380 2030 750 Balance 2271 1195 1741 Result Diagrams: 11/24/17 06:16 11/23/17 04:27 Phys Exam - Physical Examination Constitutional: NAD HEENT: PERRLA, moist MMs, sclera anicteric, oral pharynx no lesions Neck: no nodes, supple, full ROM mild JVD Respiratory: no wheezing, no rhonchi bibasilar crackles Cardiovascular: RRR, no significant murmur, no rub Gastrointestinal: soft, non-tender, no distention, positive bowel sounds Musculoskeletal: pulses present, edema present Neurological: non-focal, normal sensation, moves all 4 limbs Lymphatic: no nodes Psychiatric: normal affect, A&O x 3 Skin: no rash, normal turgor, cap refill <2 seconds Dx/Plan (1) GABY (acute kidney injury) Code(s): N17.9 - ACUTE KIDNEY FAILURE, UNSPECIFIED Status: Resolved Comment : Improved with volume replacement, avoid nephrotoxic agent and limit contrast exposure, serial monitoring (2) Acute GI bleeding Code(s): K92.2 - GASTROINTESTINAL HEMORRHAGE, UNSPECIFIED Status: Acute Comment: Suspected lower tract source, s/p 6u PRBC's, serial H/H, Protonix 40mg IV q12h, Hgb down to 7.7 overnight. GI ordered daily vitamin K, correct coagulopathy. ? related to shock liver (3) Acute blood loss anemia Code(s): D62 - ACUTE POSTHEMORRHAGIC ANEMIA Status: Acute Comment: s/p massive transfusion protocol with 6u PRBC's, H/H stabilizing currently, monitor for recurrence, CBC (4) Acute respiratory failure with hypoxia Code(s): J96.01 - ACUTE RESPIRATORY FAILURE WITH HYPOXIA Status: Resolved Comment: Extubated and reintubated, re-extubated 11/23. Pulm following. (5) Alcohol abuse Code(s): F10.10 - ALCOHOL ABUSE, UNCOMPLICATED Status: Chronic (6) Aspiration pneumonia Code(s): J69.0 - PNEUMONITIS DUE TO INHALATION OF FOOD AND VOMIT Status: Acute Qualifiers: Aspiration pneumonia type: due to gastric secretions Laterality: bilateral Lung location: unspecified part of lung Qualified Code(s): J69.0 - Pneumonitis due to inhalation of food and vomit Comment: Suspected, add Clindamycin 900mg IV q6h, Vancomycin 1gm IV q12h, pulmonary support, monitor cx results (7) Coagulopathy Status: Acute Comment: Severe coagulopathy improved with FFP, monitor closely , serial PT/PTT/INR, mre FFP earlier, Vit K ordered by GI (8) Hemorrhagic shock Code(s): R57.8 - OTHER SHOCK Status: Acute Comment: See above, IVF's, blood product administration, pressor support as needed (9) Lactic acidosis Code(s): E87.2 - ACIDOSIS Status: Acute Comment: Improved with volume and blood product resuscitation, serial monitoring (10) Shock liver Code(s): K72.00 - ACUTE AND SUBACUTE HEPATIC FAILURE WITHOUT COMA Status: Acute Comment: LFT's continuing to elevate, suspected due acute blood loss, hypoperfusion - Plan * .
[2017-11-25] MEDS: Vancomycin HCl 1 GM in Premix Bag 1 BAG IVPB SCH (00:34)
[2017-11-25 05:29] LABS: INR-International Normal Ratio 1.7; Prothrombin Time 20.6 SEC (12.0-14.7)
[2017-11-25 05:41] LABS: ALT (SGPT) 477 U/L (8-55); AST (SGOT) 92 U/L (5-34); Albumin 2.8 g/dL (3.4-4.8); Alkaline Phosphatase 242 U/L (40-150); Bilirubin, Direct 0.8 mg/dL (0.1-0.3); Bilirubin, Total 1.4 mg/dL (0.2-1.2); Protein, Total 5.6 g/dL (5.8-8.1)
[2017-11-25] MEDS: Carvedilol 6.25 MG TAB PO SCH ×2 (09:10→20:36)
[2017-11-25] MEDS: Amoxicillin/Potassium Clav 875 MG TAB PO SCH ×2 (09:10→20:52)
[2017-11-25] MEDS: Folic Acid 1 MG TAB PO SCH (09:11)
[2017-11-25] MEDS: Pantoprazole 40 MG VIAL IVP SCH ×2 (09:13→20:36)
[2017-11-25] MEDS: Rifaximin 550 MG TAB PO SCH ×2 (09:13→20:37)
[2017-11-25] MEDS: Phytonadione 10 MG/ML AMP PO SCH (10:23)
--- NOTE | 2017-11-25 16:50 | PRG ---
DATE OF SERVICE: 11/25/2017 SUBJECTIVE: Mr. Bolivar is eating some food today, stomach feels fine. He is not having any bleedin g. PHYSICAL EXAMINATION: VITAL SIGNS: Temperature 97.9, pulse 97, blood pressure 152/85. LUNGS: Clear. HEART: Regular rate and rhythm without clicks or murmurs. ABDOMEN: Soft, protuberant, seems to be fluid wave. EXTREMITIES: No edema. LABORATORY DATA: White count 13, hemoglobin 8.2, platelet count 187. INR 1.7, bilirubin 1.4, AST an d ALT 92 and 477, alkaline phosphatase 242. Serology: Hepatitis A, B, and C negative. ASSESSMENT: 1. History of significant alcohol abuse. 2. Admission with severe coagulopathy, severe bleeding, all associated just being found down at home . He also received 7 units of blood, 7 units of plasma, cryoprecipitate platelets. He is doing much better now. Shock liver seems resolving. He denies taking too much of his Coumadin. RECOMMENDATIONS: 1. Consider psychiatric evaluation, screen for depression. One of the ER notes reports he had a pre vious psychiatric hospitalization and had a previous suicide attempt with cardiac medications. The p atient denies this to me. 2. Ultrasound of liver, AFP, possible ascites. 3. Colonoscopy in early next week when he recovers from shock liver.
--- NOTE | 2017-11-25 19:44 | PRG ---
DATE OF SERVICE: 11/25/2017 SERVICE: Pulmonary Medicine. INTERVAL HISTORY: The patient is doing fine from a respiratory standpoint. He denies any chest pain , shortness of breath, fevers or chills. He got up and walked around and took a shower today. Other canas, there has been no interval change to his condition. He remains a little bit weak, but this is improving. PHYSICAL EXAMINATION: VITAL SIGNS: Afebrile, pulse 97, blood pressure 137/83, respirations 16 and saturation 97% on room a ir. GENERAL: The patient is awake and alert, in no apparent distress. LUNGS: Excellent air entry. There is no prolonged expiratory phase or wheezing. HEART: Normal rate and regular. ABDOMEN: Soft, nontender and nondistended. Bowel sounds are positive. MUSCULOSKELETAL: No cyanosis or clubbing. There is no pitting in the bilateral lower extremities. NEUROLOGIC: Grossly nonfocal. LABORATORY DATA: WBC is 13.0, hemoglobin 8.2 and platelets 187,000. INR has improved to 1.7 with no intervention. AST and ALT continued to trend downward. Total bilirubin is also improving. Albumin is rebounding. Sputum is growing Staph aureus, which is sensitive to oxacillin. ASSESSMENT: 1. Acute hypoxic respiratory failure, resolved. 2. Acute blood loss anemia, stable. 3. Hemorrhagic shock, resolved. 4. Healthcare-associated pneumonia secondary to aspiration event, growing methicillin-susceptible St aphylococcus aureus. 5. Metabolic encephalopathy, resolved. 6. Shock liver, resolved. 7. Hypercoagulable state secondary to liver disease, and Coumadin overdose, resolved. DISCUSSIOIN AND PLAN: At this point, no further requirements for inpatient Pulmonary Critical Care o juan manuel. As such, I will sign off. Please call with additional questions or concerns moving forward. The pneumonia only needs to be treated for a period of 7 days. Please call if he develops any incr easing respiratory difficulties.
--- NOTE | 2017-11-25 20:51 | PDOC.PN ---
- Subjective Encounter Start Date: 11/25/17 Encounter Start Time: 09:15 Pt transferred to the floor, doing well. No futher bleeding, no CP or SOB,no n/ V/d/c. Feels tired. Deneis cough or hemoptysis. We disucssed his medication, no intentional overdose, has medicines in a pill box, not sure if there was any mistakes in there or not Left sided abdominal pain resolved yesterday, had a good BM, passed large amount of gas 10 point RSO performed and neg for all systems except as above - Objective MAR Reviewed: Yes Vital Signs & Weight: Vital Signs (12 hours) Temp Pulse Pulse Resp BP BP BP 11/25/17 20:36 154/79 H 11/25/17 19:47 98.2 F 91 20 154/79 H 11/25/17 15:54 98 F 97 16 137/83 11/25/17 11:54 97.8 F 97 18 152/85 H 11/25/17 10:01 94 144/74 H 11/25/17 09:17 11/25/17 09:10 153/88 H Pulse Ox 11/25/17 20:36 11/25/17 19:47 96 11/25/17 15:54 97 11/25/17 11:54 96 11/25/17 10:01 11/25/17 09:17 96 11/25/17 09:10 Weight Admit Weight 151 lb 7.312 oz Weight 153 lb 7.056 oz Most Recent Monitor Data Heart Rate from ECG 104 NIBP 122/73 NIBP BP-Mean 96 Respiration from ECG 20 SpO2 99 I&O: 11/24/17 11/25/17 11/26/17 06:59 06:59 06:59 Intake Total 3225 2501 Output Total 2030 750 Balance 1195 1751 Result Diagrams: 11/26/17 05:06 11/26/17 05:06 Phys Exam - Physical Examination Constitutional: NAD HEENT: PERRLA, moist MMs, sclera anicteric, oral pharynx no lesions Neck: no nodes, no JVD, supple, full ROM Respiratory: no wheezing, no rales, no rhonchi, clear to auscultation bilateral Cardiovascular: RRR, no significant murmur, no rub Gastrointestinal: soft, non-tender, no distention, positive bowel sounds Musculoskeletal: pulses present, edema present Neurological: non-focal, normal sensation, moves all 4 limbs Lymphatic: no nodes Psychiatric: normal affect, A&O x 3 Skin: no rash, normal turgor, cap refill <2 seconds Dx/Plan (1) GABY (acute kidney injury) Code(s): N17.9 - ACUTE KIDNEY FAILURE, UNSPECIFIED Status: Resolved Comment : Improved with volume replacement, avoid nephrotoxic agent and limit contrast exposure, serial monitoring (2) Acute GI bleeding Code(s): K92.2 - GASTROINTESTINAL HEMORRHAGE, UNSPECIFIED Status: Acute Comment: Suspected lower tract source, s/p 6u PRBC's, serial H/H, Protonix 40mg IV q12h, Hgb down to 7.7 overnight. GI ordered daily vitamin K, correct coagulopathy. ? related to shock liver or intenional overdose of coumdin or unintentional (3) Acute blood loss anemia Code(s): D62 - ACUTE POSTHEMORRHAGIC ANEMIA Status: Acute Comment: s/p massive transfusion protocol with 6u PRBC's, H/H stabilizing currently, monitor for recurrence, CBC (4) Acute respiratory failure with hypoxia Code(s): J96.01 - ACUTE RESPIRATORY FAILURE WITH HYPOXIA Status: Resolved Comment: Extubated and reintubated, re-extubated 11/23. Pulm following. (5) Alcohol abuse Code(s): F10.10 - ALCOHOL ABUSE, UNCOMPLICATED Status: Chronic (6) Aspiration pneumonia Code(s): J69.0 - PNEUMONITIS DUE TO INHALATION OF FOOD AND VOMIT Status: Acute Qualifiers: Aspiration pneumonia type: due to gastric secretions Laterality: bilateral Lung location: unspecified part of lung Qualified Code(s): J69.0 - Pneumonitis due to inhalation of food and vomit Comment: Suspected, add Clindamycin 900mg IV q6h, Vancomycin 1gm IV q12h, pulmonary support, monitor cx results (7) Coagulopathy Status: Acute Comment: Severe coagulopathy improved with FFP, vit k., monitor closely, serial PT/PTT/INR, mre FFP earlier, Vit K ordered by GI (8) Hemorrhagic shock Code(s): R57.8 - OTHER SHOCK Status: Acute Comment: See above, IVF's, blood product administration, pressor support as needed (9) Lactic acidosis Code(s): E87.2 - ACIDOSIS Status: Acute Comment: Improved with volume and blood product resuscitation, serial monitoring (10) Shock liver Code(s): K72.00 - ACUTE AND SUBACUTE HEPATIC FAILURE WITHOUT COMA Status: Acute Comment: LFT's continuing to elevate, suspected due acute blood loss, hypoperfusion - Plan cont current plan of care, PT/OT, out of bed/ambulate * .
[2017-11-26 06:19] LABS: ALT (SGPT) 339 U/L (8-55); AST (SGOT) 59 U/L (5-34); Albumin 2.8 g/dL (3.4-4.8); Alkaline Phosphatase 235 U/L (40-150); Anion Gap 9 mmol/L (10-20); BUN (Urea Nitrogen) 13 mg/dL (8.4-25.7); Calc. Creatinine Clearance 94 mL/min (70-130); Calcium 7.8 mg/dL (7.8-10.44); Carbon Dioxide 24 mmol/L (23-31); Chloride 107 mmol/L (98-107); Estimated GFR-MDRD Greater than 90; Globulin 2.9 g/dL (2.4-3.5); Glucose 99 mg/dL (80-115); Potassium 3.9 mmol/L (3.5-5.1); Protein, Total 5.7 g/dL (5.8-8.1); Sodium 136 mmol/L (136-145)
[2017-11-26 06:23] LABS: Band 3 % (5-11); Eosinophils 1 % (0-10); Hemoglobin 9.4 g/dL (14.0-18.0); Lymphocytes 6 % (21-51); MDiff Complete? YES; Mean Corpuscular HGB CONC 32.4 g/dL (32.0-36.0); Mean Corpuscular Volume 86.4 fl (80.0-94.0); Mean Platelet Volume 6.9 fL (7.4-10.4); Monocytes 8 % (0-10); Neutrophil 81 % (42-75); Platelet Count 311 thou/uL (130-400); RBC Distribution Width 15.5 % (11.5-14.5); Red Blood Cell (RBC) Count 3.34 mill/uL (4.70-6.10); White Blood Cell (WBC) Count 16.7 thou/uL (4.8-10.8)
[2017-11-26] MEDS: Folic Acid 1 MG TAB PO SCH (09:20)
[2017-11-26] MEDS: Carvedilol 6.25 MG TAB PO SCH ×2 (09:20→20:33)
[2017-11-26] MEDS: Pantoprazole 40 MG VIAL IVP SCH ×2 (09:21→20:33)
[2017-11-26] MEDS: Rifaximin 550 MG TAB PO SCH (09:21)
[2017-11-26] MEDS: Amoxicillin/Potassium Clav 875 MG TAB PO SCH ×2 (09:21→20:34)
--- NOTE | 2017-11-26 09:58 | ULT ---
ULTRASOUND ABDOMEN COMPLETE: DATE: 11/26/17. COMPARISON: Hepatic Doppler ultrasound of 11/21/17. HISTORY: A 67-year-old male with ascites and abnormal liver function tests. Possible cirrhosis. TECHNIQUE: More-scale ultrasound evaluation of the liver, gallbladder, spleen, pancreas, common bile duct, kidne ys, abdominal aorta, and inferior vena cava (IVC). FINDINGS: Hepatic echogenicity is within normal limits. The gallbladder is no longer distended. It continues to have some sludge. The gallbladder kim are thickened to approximately 5 mm. This is nonspecific , and could be due to chronic cholecystitis, acute cholecystitis, or liver disease. There is a small amount of free fluid around the liver and around the spleen. There is a right pleural effusion. No hydronephrosis bilaterally. No splenomegaly. No abdominal aortic aneurysm. Unremarkable IVC. Poo r visualization of the pancreatic body and tail, obscured by shadowing from bowel gas. Nonspecific s onographic appearance of pancreatic head. Common duct caliber is 6 mm. Hepatopetal flow is demonstr ated in the main portal vein, with appropriate pulsed Doppler waveform. IMPRESSION: 1. Minimal ascites. 2. Mural thickening of the gallbladder. Gallbladder sludge. 3. Right pleural effusion. JN R POS: SJ
[2017-11-26] MEDS ORDERED: Lorazepam 1 MG TAB PO PRN (10:43)
[2017-11-26] MEDS: Phytonadione 10 MG/ML AMP PO SCH (10:49)
--- NOTE | 2017-11-26 12:10 | PDOC.PN ---
- Subjective Encounter Start Date: 11/26/17 Encounter Start Time: 09:50 Pt more awake and alert, answering question appropriately. N F/c, no N/v/d/c, no CP, no SOB, denies and melena, hematochezia or hematemesis. Abd U/S requested by GI, done, awaiting results. labd reviewed 10 point ROS performed and neg for all systems except as per HPI - Objective MAR Reviewed: Yes Vital Signs & Weight: Vital Signs (12 hours) Temp Pulse Resp BP BP Pulse Ox 11/26/17 12:00 98.3 F 98 16 102/56 L 93 L 11/26/17 09:20 154/71 H 11/26/17 08:00 98.1 F 104 H 14 11/26/17 07:59 98.1 F 104 H 14 154/71 H 95 11/26/17 02:54 98.1 F 99 24 H 153/68 H 95 Weight Admit Weight 151 lb 7.312 oz Weight 153 lb 7.056 oz Most Recent Monitor Data Heart Rate from ECG 104 NIBP 122/73 NIBP BP-Mean 96 Respiration from ECG 20 SpO2 99 I&O: 11/25/17 11/26/17 11/27/17 06:59 06:59 06:59 Intake Total 2501 240 Output Total 750 175 Balance 1751 -175 240 Result Diagrams: 11/26/17 05:06 11/26/17 05:06 EKG Reviewed by me: Yes Phys Exam - Physical Examination Constitutional: NAD HEENT: PERRLA, moist MMs, sclera anicteric, oral pharynx no lesions Neck: no nodes, no JVD, supple, full ROM Respiratory: no wheezing, no rales, no rhonchi, clear to auscultation bilateral Cardiovascular: no rub, irregular tachy, in afib Gastrointestinal: soft, non-tender, no distention, positive bowel sounds Musculoskeletal: pulses present, edema present Neurological: non-focal, normal sensation, moves all 4 limbs Lymphatic: no nodes Psychiatric: A&O x 3 Deviation from normal: flat affect Skin: no rash, normal turgor, cap refill <2 seconds Dx/Plan (1) GABY (acute kidney injury) Code(s): N17.9 - ACUTE KIDNEY FAILURE, UNSPECIFIED Status: Resolved Comment : resolved. cr 0.74 (2) Acute GI bleeding Code(s): K92.2 - GASTROINTESTINAL HEMORRHAGE, UNSPECIFIED Status: Acute Comment: Suspected lower tract source, s/p 6u PRBC's, serial H/H, Protonix 40mg IV q12h, remains stale and slowly increasing. GI ordered daily vitamin K, correct coagulopathy. ? related to shock liver or intenional overdose of coumdin or unintentional. U/S today looking for ascites, per Dr Perkins note, planning colonoscopy when shock liver has resolved (3) Acute blood loss anemia Code(s): D62 - ACUTE POSTHEMORRHAGIC ANEMIA Status: Acute Comment: s/p massive transfusion protocol with 6u PRBC's, H/H stabilizing currently, monitor for recurrence, CBC (4) Acute respiratory failure with hypoxia Code(s): J96.01 - ACUTE RESPIRATORY FAILURE WITH HYPOXIA Status: Resolved Comment: Extubated and reintubated, re-extubated 11/23. Pulm following. (5) Alcohol abuse Code(s): F10.10 - ALCOHOL ABUSE, UNCOMPLICATED Status: Chronic Comment: was on sedations until extubated on 11/23. now tachy, in afib, posssible withdrawing. po ativan prn and ASE scores ordered (6) Aspiration pneumonia Code(s): J69.0 - PNEUMONITIS DUE TO INHALATION OF FOOD AND VOMIT Status: Resolved Qualifiers: Aspiration pneumonia type: due to gastric secretions Laterality: bilateral Lung location: unspecified part of lung Qualified Code(s): J69.0 - Pneumonitis due to inhalation of food and vomit Comment: on po augmentin for another few days (7) Coagulopathy Status: Acute Comment: Severe coagulopathy improved with FFP, vit k., monitor closely, serial PT/PTT/INR, mre FFP earlier, Vit K ordered by GI (8) Hemorrhagic shock Code(s): R57.8 - OTHER SHOCK Status: Acute Comment: See above, IVF's, blood product administration, pressor support as needed (9) Lactic acidosis Code(s): E87.2 - ACIDOSIS Status: Acute Comment: Improved with volume and blood product resuscitation, serial monitoring (10) Shock liver Code(s): K72.00 - ACUTE AND SUBACUTE HEPATIC FAILURE WITHOUT COMA Status: Acute Comment: slowly normalizing - Plan cont current plan of care, continue antibiotics, PT/OT, social media sr strategy manager, out of bed/ambulate * .
[2017-11-26] MEDS ORDERED: GoLYTELY 4,000 ml Bottle PO SCH (14:00)
[2017-11-27 06:06] LABS: #Basophils 0.1 thou/uL (0.0-0.2); #Eosinphils 0.3 thou/uL (0.0-0.7); #Lymphocytes 1.4 thou/uL (1.20-3.40); #Monocytes 1.8 thou/uL (0.11-0.59); #Neutrophils 11.8 thou/uL (1.40-6.50); %Basophils 0.5 % (0.0-1.0); %Eosinophils 2.2 % (0.0-10.0); %Lymphocytes 9.2 % (21.0-51.0); %Monocytes 11.9 % (0.0-10.0); %Neutrophils 76.2 % (42.0-75.0); Hemoglobin 9.4 g/dL (14.0-18.0); Mean Corpuscular HGB CONC 32.4 g/dL (32.0-36.0); Mean Corpuscular Hemoglobin 28.1 pg (27.0-31.0); Mean Corpuscular Volume 86.7 fl (80.0-94.0); Mean Platelet Volume 7.3 fL (7.4-10.4); Platelet Count 387 thou/uL (130-400); RBC Distribution Width 16.2 % (11.5-14.5); Red Blood Cell (RBC) Count 3.33 mill/uL (4.70-6.10); White Blood Cell (WBC) Count 15.4 thou/uL (4.8-10.8)
[2017-11-27 06:07] LABS: INR-International Normal Ratio 1.3; Prothrombin Time 15.9 SEC (12.0-14.7)
[2017-11-27 06:08] LABS: PTT 35.8 SEC (22.9-36.1)
[2017-11-27 06:24] LABS: ALT (SGPT) 248 U/L (8-55); AST (SGOT) 48 U/L (5-34); Albumin 2.8 g/dL (3.4-4.8); Alkaline Phosphatase 205 U/L (40-150); Anion Gap 11 mmol/L (10-20); BUN (Urea Nitrogen) 9 mg/dL (8.4-25.7); Calc. Creatinine Clearance 94 mL/min (70-130); Calcium 7.9 mg/dL (7.8-10.44); Carbon Dioxide 24 mmol/L (23-31); Chloride 106 mmol/L (98-107); Estimated GFR-MDRD Greater than 90; Globulin 3.2 g/dL (2.4-3.5); Glucose 91 mg/dL (80-115); Magnesium 2.1 mg/dL (1.6-2.6); Potassium 3.9 mmol/L (3.5-5.1); Sodium 137 mmol/L (136-145)
[2017-11-27] MEDS: Pantoprazole 40 MG VIAL IVP SCH ×2 (09:21→22:13)
[2017-11-27] MEDS: Amoxicillin/Potassium Clav 875 MG TAB PO SCH ×2 (09:22→22:13)
[2017-11-27] MEDS: Carvedilol 6.25 MG TAB PO SCH ×2 (09:22→22:13)
[2017-11-27] MEDS: Folic Acid 1 MG TAB PO SCH (09:22)
--- NOTE | 2017-11-27 09:23 | PDOC.PN ---
- Subjective Encounter Start Date: 11/27/17 Encounter Start Time: 12:40 Subjective: Patient back from colonoscopy. No complaints. No CP/SOB. No -: abdominal pain. No bleeding. - Objective MAR Reviewed: Yes Vital Signs & Weight: Vital Signs (12 hours) Temp Pulse Resp BP BP Pulse Ox 11/27/17 08:00 98.2 F 100 16 137/78 137/78 95 11/27/17 04:52 97.9 F 100 16 159/79 H 11/26/17 23:15 99.0 F 105 H 16 161/88 H 95 Weight Admit Weight 151 lb 7.312 oz Weight 153 lb 7.056 oz Most Recent Monitor Data Heart Rate from ECG 104 NIBP 122/73 NIBP BP-Mean 96 Respiration from ECG 20 SpO2 99 I&O: 11/26/17 11/27/17 11/28/17 06:59 06:59 06:59 Intake Total 2880 Output Total 175 7 Balance -175 2873 Result Diagrams: 11/27/17 05:33 11/27/17 05:33 Phys Exam - Physical Examination Constitutional: NAD HEENT: moist MMs Respiratory: no wheezing, no rales, no rhonchi, clear to auscultation bilateral Cardiovascular: RRR, no significant murmur Gastrointestinal: soft, non-tender, positive bowel sounds Neurological: non-focal Psychiatric: normal affect, A&O x 3 Dx/Plan (1) Acute GI bleeding Code(s): K92.2 - GASTROINTESTINAL HEMORRHAGE, UNSPECIFIED Status: Acute Comment: Suspected lower tract source, s/p 6u PRBC's, serial H/H, Protonix 40mg IV q12h, remains stale and slowly increasing. GI ordered daily vitamin K, correct coagulopathy. ? related to shock liver or intenional overdose of coumdin or unintentional. U/S with minimal ascites. Colonoscopy without bleeding source, multiple polyps removed, no Coumadin for 1 week. (2) Acute blood loss anemia Code(s): D62 - ACUTE POSTHEMORRHAGIC ANEMIA Status: Acute Comment: s/p massive transfusion protocol with 6u PRBC's, H/H stabilizing currently, monitor for recurrence, CBC (3) Coagulopathy Status: Acute Comment: Severe coagulopathy improved with FFP, vit k., monitor closely, serial PT/PTT/INR, mre FFP earlier, Vit K ordered by GI (4) Hemorrhagic shock Code(s): R57.8 - OTHER SHOCK Status: Acute Comment: See above, IVF's, blood product administration, pressor support as needed (5) Lactic acidosis Code(s): E87.2 - ACIDOSIS Status: Resolved (6) Shock liver Code(s): K72.00 - ACUTE AND SUBACUTE HEPATIC FAILURE WITHOUT COMA Status: Acute Comment: slowly normalizing (7) Alcohol abuse Code(s): F10.10 - ALCOHOL ABUSE, UNCOMPLICATED Status: Chronic Comment: was on sedations until extubated on 11/23. now tachy, in afib, posssible withdrawing. po ativan prn and ASE scores ordered (8) GABY (acute kidney injury) Code(s): N17.9 - ACUTE KIDNEY FAILURE, UNSPECIFIED Status: Resolved Comment : resolved (9) Acute respiratory failure with hypoxia Code(s): J96.01 - ACUTE RESPIRATORY FAILURE WITH HYPOXIA Status: Resolved Comment: Extubated and reintubated, re-extubated 11/23. Pulm following. (10) Aspiration pneumonia Code(s): J69.0 - PNEUMONITIS DUE TO INHALATION OF FOOD AND VOMIT Status: Resolved Qualifiers: Aspiration pneumonia type: due to gastric secretions Laterality: bilateral Lung location: unspecified part of lung Qualified Code(s): J69.0 - Pneumonitis due to inhalation of food and vomit Comment: on po augmentin for total 7 days abx, last day 11/29/17 - Plan cont current plan of care, continue antibiotics, PT/OT, social media job titles Colonoscopy with many polyps but no source of bleeding. Restart anticoag -: no sooner than 1 week due to polyps. * . - Discharge Day Encounter end time: 12:50
[2017-11-27] MEDS ORDERED: Promethazine HCl 25 MG/ML VIAL SLOW IVP PRN (10:26)
[2017-11-27] MEDS ORDERED: Ondansetron HCl/PF 4 MG/2 ML Vial IVP PRN (10:26)
[2017-11-27] MEDS ORDERED: Promethazine HCl 25 MG/ML VIAL IM PRN (10:26)
[2017-11-27] MEDS ORDERED: ePHEDrine/0.9% NaCl/PF SYRINGE 50 mg/10 ml ONE (10:41)
[2017-11-27] MEDS ORDERED: Lidocaine 1% PF 5 ML VIAL ONE (10:41)
[2017-11-27] MEDS ORDERED: PROPOFOL 200 MG/20 ML VIAL ONE (10:41)
[2017-11-27] MEDS ORDERED: PHENYLEPHRINE-NS 100 MCG/ML 10 ML SYRINGE ONE (10:41)
--- NOTE | 2017-11-27 11:34 | PRG ---
DATE OF SERVICE: 11/26/2017 SUBJECTIVE: Mr. Bolivar is feeling better each day. He is up walking around with walker. He has tinsley d no bleeding. OBJECTIVE: VITAL SIGNS: Temperature is 98.3, blood pressure 102/56, respirations 16, O2 sat 92%-95% on room air . HEENT: Conjuctivae and sclerae are clear. LUNGS: Clear. HEART: Regular rate and rhythm. ABDOMEN: Slight protuberant with shifting dullness. EXTREMITIES: No clubbing, cyanosis or edema. LABORATORY STUDIES: White count 16.7, hemoglobin 9.4 and platelet count 311. INR is 1.7. Sodium 13 6, BUN and creatinine are 13 and 0.74. AST and ALT are down to 59 and 339 with alkaline phosphatase of 335, protein 5.7, albumin 2.8. Hepatitis A, B, and C serologies were negative. IMAGING STUDIES: Ultrasound of his abdomen, minimal ascites thickened gallbladder, gallbladder sludge, right pleural effusion. ASSESSMENT: 1. Gastrointestinal bleed on admission, likely related to Coumadin toxicity. He did have an esophag ogastroduodenoscopy that was negative. No varices, no gastritis. He does need colonoscopy. He has never had one as his INR has come down and he really going to start thinking about restarting him on some Coumadin for his prosthetic heart valve. I think the best time to do is to be tomorrow. He is agreeable. We will prep him today for colonoscopy tomorrow. 2. In regards to Coumadin toxicity, it is very suspicious he has had and he confirms a previous over dose on Coumadin after his heart surgery. He denies drinking alcohol, but family member significant other raises concern that he was drinking alcohol on a fairly regular basis. He denies some suicidal ideation or depression at this time and notes that at time of his suicide attempt with Coumadin afte r his heart valve replacement, he was very depressed that he attributed to post-surgical situation. 3. He does have some mild thickening of the gallbladder which makes me wonder about mild portal hype rtension, but ultrasound shows none. He has got normal platelet count. It may be that this is resid ual effect from shock liver, which is slowly improving. PLAN: Colonoscopy tomorrow. If that is normal, we can restart his anticoagulation with regard to hi s atrial fibrillation.
--- NOTE | 2017-11-27 11:43 | OP ---
DATE OF PROCEDURE: 11/27/2017 SURGEON: Demond Perkins M.D. PROCEDURES: Colonoscopy, snare polypectomy and saline injection and Hemoclip for hemostasis. PREPROCEDURE DIAGNOSES: Recent GI hemorrhage related to Coumadin toxicity/overdose. POSTOPERATIVE DIAGNOSES: 1. Ten polyps in the cecum and proximal ascending colon ranging in size from 0.5-1 cm in size, remov ed by hot snare polypectomy, one spot had oozing and a Hemoclip was placed over that. 2. Mid ascending colon polyp 0.2 cm semi-pedunculated removed by snare polypectomy and submitted to Pathology. 3. 1.5 semi-pedunculated and semi-sessile cm polyp in the cecum lifted with saline injection and rem pedro by snare polypectomy in 2 pieces, submitted to pathology as a cecal polyp. 4. Three descending colon polyps removed by snare polypectomy, ranging in size from 0.5-1 cm in size , semi-pedunculated submitted to pathology. 5. Otherwise, normal colonoscopy. RECOMMENDATIONS: 1. Await pathology. 2. The patient likely has polyposis and needs repeat colonoscopy in 1 year or sooner if there are an y dysplasia in these polyps. 3. Would not restart anticoagulation for 7 days due to large size and number of polyps and unreliabi lity of the patient in taking Coumadin. PROCEDURE IN DETAIL: After the patient was informed of the risks, benefits, possible complications o f endoscopy including perforation, bleeding, reactions to medication and aspiration, informed consent was obtained. The patient was brought to endoscopy suite where he was sedated in gradual fashion. Once he was comfortable a rectal exam was performed. The endoscope was advanced to the anal canal to the colon and cecum which was identified by the ileocecal valve and appendiceal orifice. There was no active bleeding. There was a large flat sessile polyp with some very flat features and some sligh tly pedunculated features in the cecum. This was raised with saline injection and then removed in tw o pieces. There were about ten other polyps in the cecum and proximal ascending colon from 0.5-1 cm in size removed by snare polypectomy. One site bled a little bit and it was clipped. There was also a 1.5 pedunculated polyp in the sigmoid colon removed by snare polypectomy and submitted to patholog y by itself. There were 3 polyps in the descending sigmoid regions which were removed and submitted t o Pathology. No other lesions were seen. Retroflexed views were normal. There was no active bleedi ng. The scope was removed. The patient tolerated the procedure well without any complications.
[2017-11-27] MEDS: Diabetic Tussin 200 MG/10 ML UDCUP PO PRN (17:20)
[2017-11-28] MEDS: Diabetic Tussin 200 MG/10 ML UDCUP PO PRN (05:13)
[2017-11-28] MEDS: Carvedilol 6.25 MG TAB PO SCH (08:30)
[2017-11-28] MEDS: Folic Acid 1 MG TAB PO SCH (08:30)
[2017-11-28] MEDS: Amoxicillin/Potassium Clav 875 MG TAB PO SCH (08:30)
[2017-11-28] MEDS: Pantoprazole 40 MG VIAL IVP SCH (08:30)
--- NOTE | 2017-11-28 09:00 | PDOC.PN ---
- Subjective Encounter Start Date: 11/28/17 Encounter Start Time: 11:15 Subjective: No abdominal pain. No blood/melena in BM. No other complaints. - Objective MAR Reviewed: Yes Vital Signs & Weight: Vital Signs (12 hours) Temp Pulse Resp BP BP Pulse Ox 11/28/17 08:30 111/68 11/28/17 08:00 97.9 F 109 H 20 146/79 H 97 11/28/17 03:09 98.3 F 109 H 16 136/89 92 L 11/27/17 23:25 98.8 F 96 16 135/77 92 L 11/27/17 22:13 111/68 Weight Admit Weight 151 lb 7.312 oz Weight 144 lb 14.4 oz Most Recent Monitor Data Heart Rate from ECG 104 NIBP 122/73 NIBP BP-Mean 96 Respiration from ECG 20 SpO2 99 I&O: 11/27/17 11/28/17 11/29/17 06:59 06:59 06:59 Intake Total 2880 560 Output Total 7 Balance 2873 560 Result Diagrams: 11/27/17 05:33 11/27/17 05:33 Phys Exam - Physical Examination Constitutional: NAD HEENT: moist MMs Respiratory: no wheezing, no rales, no rhonchi, clear to auscultation bilateral Cardiovascular: RRR, no significant murmur Gastrointestinal: soft, non-tender, positive bowel sounds Neurological: non-focal, moves all 4 limbs Psychiatric: normal affect, A&O x 3 Dx/Plan (1) Acute GI bleeding Code(s): K92.2 - GASTROINTESTINAL HEMORRHAGE, UNSPECIFIED Status: Acute Comment: Suspected lower tract source, s/p 6u PRBC's, serial H/H, Protonix 40mg IV q12h, remains stale and slowly increasing. GI ordered daily vitamin K, correct coagulopathy. ? related to shock liver or intenional overdose of coumdin or unintentional. U/S with minimal ascites. Colonoscopy without bleeding source, multiple polyps removed, no Coumadin for 1 week. (2) Acute blood loss anemia Code(s): D62 - ACUTE POSTHEMORRHAGIC ANEMIA Status: Acute Comment: s/p massive transfusion protocol with 6u PRBC's, H/H stabilizing currently, monitor for recurrence, CBC (3) Coagulopathy Status: Resolved Comment: Severe coagulopathy improved with FFP, vit k., monitor closely, serial PT/PTT/INR, mre FFP earlier, Vit K ordered by GI (4) Hemorrhagic shock Code(s): R57.8 - OTHER SHOCK Status: Resolved Comment: See above, IVF's, blood product administration, pressor support as needed (5) Lactic acidosis Code(s): E87.2 - ACIDOSIS Status: Resolved (6) Shock liver Code(s): K72.00 - ACUTE AND SUBACUTE HEPATIC FAILURE WITHOUT COMA Status: Acute Comment: slowly normalizing (7) Alcohol abuse Code(s): F10.10 - ALCOHOL ABUSE, UNCOMPLICATED Status: Chronic Comment: was on sedations until extubated on 11/23. now tachy, in afib, posssible withdrawing. po ativan prn and ASE scores ordered, improved now (8) GABY (acute kidney injury) Code(s): N17.9 - ACUTE KIDNEY FAILURE, UNSPECIFIED Status: Resolved Comment : resolved (9) Acute respiratory failure with hypoxia Code(s): J96.01 - ACUTE RESPIRATORY FAILURE WITH HYPOXIA Status: Resolved Comment: Extubated and reintubated, re-extubated 11/23. Pulm signed off. (10) Aspiration pneumonia Code(s): J69.0 - PNEUMONITIS DUE TO INHALATION OF FOOD AND VOMIT Status: Resolved Qualifiers: Aspiration pneumonia type: due to gastric secretions Laterality: bilateral Lung location: unspecified part of lung Qualified Code(s): J69.0 - Pneumonitis due to inhalation of food and vomit Comment: on po augmentin for total 7 days abx, last day 11/29/17 - Plan cont current plan of care, continue antibiotics, PT/OT home when ok per gastroenterology, needs to f/u in one week with -: Dr. Alex to restart anticoagulation or other anticoag. * . - Discharge Day Encounter end time: 11:30
[2017-11-28 12:08] VITALS: BP 128/66; TEMP 98.7
[2017-11-28 12:31] LABS: #Eosinphils 0.3 thou/uL (0.0-0.7); #Lymphocytes 1.1 thou/uL (1.20-3.40); #Monocytes 1.4 thou/uL (0.11-0.59); #Neutrophils 9.4 thou/uL (1.40-6.50); %Basophils 0.2 % (0.0-1.0); %Eosinophils 2.4 % (0.0-10.0); %Lymphocytes 9.2 % (21.0-51.0); %Monocytes 11.6 % (0.0-10.0); %Neutrophils 76.7 % (42.0-75.0); Hemoglobin 8.6 g/dL (14.0-18.0); Mean Corpuscular HGB CONC 31.6 g/dL (32.0-36.0); Mean Corpuscular Hemoglobin 27.7 pg (27.0-31.0); Mean Corpuscular Volume 87.9 fl (80.0-94.0); Mean Platelet Volume 6.5 fL (7.4-10.4); Platelet Count 419 thou/uL (130-400); RBC Distribution Width 15.7 % (11.5-14.5); White Blood Cell (WBC) Count 12.3 thou/uL (4.8-10.8)
--- NOTE | 2017-11-29 12:10 | DIS ---
PRIMARY CARE PHYSICIAN: Dr. Bower. REASON FOR ADMISSION: Acute gastrointestinal bleed with hemorrhagic shock. DISCHARGE DIAGNOSES: 1. Acute gastrointestinal bleed, resolved. 2. Acute blood loss anemia, resolved. 3. Hemorrhagic shock, resolved. 4. Coagulopathy secondary to Coumadin. 5. Shock liver improved. 6. Alcohol abuse. 7. Acute kidney injury, resolved. 8. Acute respiratory failure with hypoxia, resolved. 9. Aspiration pneumonia. 10. History of atrial fibrillation. PROCEDURES: 1. Esophagogastroduodenoscopy showing normal esophagogastroduodenoscopy with no varices in the esoph alyssa or stomach and no active bleeding. No evidence of portal hypertension. 2. Ultrasound of the liver showing small amount of biliary sludge within the gallbladder consistent with chronic gallbladder dyskinesis, some hepatosteatosis. No evidence of significant portal hyperte nsion. 3. Intubation. 4. Arterial catheter replacement. 5. Complete ultrasound of the abdomen showing minimal ascites, mural thickening of the gallbladder a nd sludge, and right pleural effusion. 6. Colonoscopy with snare polypectomy showing greater than 10 polyps throughout the colon with multi ple snare resections and 1 Hemoclip placement for bleeding. CONSULTATIONS: 1. Pulmonology, Dr. Acosta. 2. Gastroenterology, Dr. Perkins. SUMMARY OF HOSPITAL COURSE: This is a 67-year-old white male who was found in his apartment by [employer] personnel after a girlfriend notified them that he had not talked to her in 2-3 days. He was found obtunded with a low blood sugar and noted to have bloody diarrhea on the floor as well. He has history of heavy alcohol use per his girlfriend. He was intubated at the scene. In the ER, he was noted to have a hemoglobin of 2.4, platelet count of 900. INR was unable to be calculated. He recei meredith multiple units of packed red blood cells as well as fresh-frozen plasma. Once he was stabilized, he was brought for EGD with above results. His octreotide drip was stopped at that point, as there was no evidence of an upper GI bleed or any portal hypertension. Pulmonology was consulted as well f or management of his respiratory failure. Patient had multiple transfusions and was slowly stabilize d and eventually was extubated, however, had a repeat episode of respiratory distress, had to be re-i ntubated. Eventually, he was gotten off the ventilator permanently. He was noted to have a new infi ltrate in his chest x-ray thought to be secondary to aspiration pneumonia and was put on appropriate antibiotics. Patient had workup for possibility of liver disease without any evidence due to his jeremy vated liver function tests and his extremely high INR; however, this work was negative for any signif icant liver disease is thought to be secondary to shock liver from his bleeding. Patient reported th at he had been taking his Coumadin as directed and had not tried to take too much, although there is a report in our computer system from years ago that he had previously tried to commit suicide by taki ng too much Coumadin. He now. Denies any depression or suicidal ideation. Patient was either stabilized and had the normal liver ultrasound. He had a colonoscopy done as well, which showed no evidence of bleeding, but did show multiple polyps scattered throughout the colon, especially in the distal colon, sigmoid colon, these were removed by his snare polypectomy. Dr. Perkins recommended no Coumadin for at least a week after this polypectomy to prevent postoperative bleeding. On the day of discharge, patient was doing well and was eager to go home. He had been ambulating, needing a littl e assistance of using a walker, though he also is being sent home with a walker and home physical the rapy. Patient's Coumadin is apparently due to his atrial fibrillation. He follows with Dr. Jodie almeida. He is to follow up in 1 week to discuss restarting this. DISCHARGE MANAGEMENT: Discharged to home with home health. ACTIVITY: As tolerated. DIET: Healthy-heart diet. Home health with physical therapy. DISCHARGE MEDICATIONS: 1. Carvedilol 6.25 mg twice a day. 2. Lisinopril 2.5 mg daily. 3. Thiamine 100 mg daily. 4. Protonix 40 mg daily. 5. Folic acid 1 mg daily. 6. Hold all Coumadin for now. Patient is to follow up with Dr. Perkins in 2 weeks as well about the polypectomy results.
--- NOTE | 2017-12-13 15:05 | EKG ---
Test Reason : Blood Pressure : / mmHG Vent. Rate : 094 BPM Atrial Rate : 300 BPM P-R Int : 000 ms QRS Dur : 076 ms QT Int : 400 ms P-R-T Axes : 000 013 108 degrees QTc Int : 500 ms Atrial fibrillation Low voltage QRS Nonspecific ST and T wave abnormality , probably digitalis effect Prolonged QT Abnormal ECG Confirmed by ALEX ERWIN [id number]), photographic editor CHESTER JEONG ([id number]) on 12/13/2017 3:05:10 PM Referred By: Confirmed By:ALEX ERWIN
== END 2017-11-28 14:59 | disposition home health service (06) | DRG 917 ==
LOC: ERS 16:49 → CCU 18:10 → 2SE 11-24 22:34
PROVIDERS: ADMIT Family Medicine; ATTEND Family Medicine
PROC: 5A1935Z Respiratory Ventilation, Less than 24 Consecutive Hours (ICD-10-PCS; 2017-11-20)
PROC: 0BH17EZ Insertion of Endotracheal Airway into Trachea, Via Natural or Artificial Opening (ICD-10-PCS; 2017-11-20)
PROC: 03HY32Z Insertion of Monitoring Device into Upper Artery, Percutaneous Approach (ICD-10-PCS; 2017-11-20)
PROC: 4A133B1 Monitoring of Arterial Pressure, Peripheral, Percutaneous Approach (ICD-10-PCS; 2017-11-20)
PROC: 4A133J1 Monitoring of Arterial Pulse, Peripheral, Percutaneous Approach (ICD-10-PCS; 2017-11-20)
PROC: 30233K1 Transfusion of Nonautologous Frozen Plasma into Peripheral Vein, Percutaneous Approach (ICD-10-PCS; 2017-11-20)
PROC: 30233N1 Transfusion of Nonautologous Red Blood Cells into Peripheral Vein, Percutaneous Approach (ICD-10-PCS; 2017-11-20)
PROC: 30233M1 Transfusion of Nonautologous Plasma Cryoprecipitate into Peripheral Vein, Percutaneous Approach (ICD-10-PCS; 2017-11-20)
PROC: 5A1945Z Respiratory Ventilation, 24-96 Consecutive Hours (ICD-10-PCS; 2017-11-22)
PROC: 0DJ08ZZ Inspection of Upper Intestinal Tract, Via Natural or Artificial Opening Endoscopic (ICD-10-PCS; 2017-11-22)
PROC: 0BH17EZ Insertion of Endotracheal Airway into Trachea, Via Natural or Artificial Opening (ICD-10-PCS; 2017-11-22)
PROC: 0DBK8ZX Excision of Ascending Colon, Via Natural or Artificial Opening Endoscopic, Diagnostic (ICD-10-PCS; principal; 2017-11-27)
PROC: 0DBM8ZX Excision of Descending Colon, Via Natural or Artificial Opening Endoscopic, Diagnostic (ICD-10-PCS; 2017-11-27)
PROC: 0DBH8ZX Excision of Cecum, Via Natural or Artificial Opening Endoscopic, Diagnostic (ICD-10-PCS; 2017-11-27)
PROC: 0W3P8ZZ Control Bleeding in Gastrointestinal Tract, Via Natural or Artificial Opening Endoscopic (ICD-10-PCS; 2017-11-27)
DX: T45.511A Poisoning by anticoagulants, accidental (unintentional), initial encounter (principal); R57.8 Other shock; J96.01 Acute respiratory failure with hypoxia; K72.00 Acute and subacute hepatic failure without coma; J69.0 Pneumonitis due to inhalation of food and vomit; G93.41 Metabolic encephalopathy; J15.212 Pneumonia due to Methicillin resistant Staphylococcus aureus; N17.9 Acute kidney failure, unspecified; K92.2 Gastrointestinal hemorrhage, unspecified; E87.2 Acidosis; D62 Acute posthemorrhagic anemia; I48.2 Chronic atrial fibrillation; F10.10 Alcohol abuse, uncomplicated; R40.2432 Glasgow coma scale score 3-8, at arrival to emergency department; I35.1 Nonrheumatic aortic (valve) insufficiency; Z95.5 Presence of coronary angioplasty implant and graft; Z95.810 Presence of automatic (implantable) cardiac defibrillator; I10 Essential (primary) hypertension; Z91.19 Patient's noncompliance with other medical treatment and regimen; K63.5 Polyp of colon; Y95 Nosocomial condition; Z91.5 Personal history of self-harm; Z95.2 Presence of prosthetic heart valve; F32.9 Major depressive disorder, single episode, unspecified
CPT/HCPCS: 31500; 36415; 36416; 36430; 51702; 71045; 74018; 74177; 76700; 76705; 80048; 80053; 80074; 80076; 80202; 80307; 81003; 81015; 82105; 82140; 82274; 82330; 82553; 82728; 82803; 82805; 83540; 83550; 83605; 83735; 84100; 84484; 85025; 85049; 85060; 85300; 85362; 85379; 85384; 85610; 85730; 86850; 86900; 86901; 87040; 87070; 87077; 87086; 87186; 87205; 88305; 93005; 94002; 94003; 96365; 96366; 96368; 96375; 96376; 99292; A4216; C9113; G8978-GP-CN; G8979-GP-CJ; J0131; J0696; J0744; J1200; J1940; J2001; J2060; J2250; J2354; J2704; J2765; J3010; J3370; J3411; J3430; J3490; J7042; J7050; P9012; P9016; P9035; P9048; P9059

== ENCOUNTER 2018-06-18 11:06 | Day surgery (SDC) | payer MEDICARE, MEDICAID ==
[2018-06-15 11:22] VITALS: BMI 23.6
[2018-06-18] MEDS ORDERED: Ketamine 50 MG/ML VIAL ONE (14:18)
[2018-06-18] MEDS ORDERED: PROPOFOL 200 MG/20 ML VIAL ONE (14:29)
--- NOTE | 2018-06-19 23:25 | ECHO ---
PREPROCEDURE DIAGNOSIS: TIA. POSTPROCEDURE DIAGNOSIS: No obvious source or TIA. PROCEDURE: RONY Patient was consented for the procedure. The patient had propofol used for conscious sedation. The probe passed easy into the esophagus. FINDINGS: Overall LVEF estimated at 50-55%. 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 No mass or vegetation present. Left atrium appears enlarged with no mass or vegetation present. Left atrial appendage not well seen and likely suggest a previous ligation. The aortic valve has a mechanical valve in place. No mass or vegetation present. The RA and RV are normal size and function. IMPRESSION: No mass or vegetation present.
== END 2018-06-18 15:40 | disposition home or self-care (01) ==
LOC: CCL 11:06
PROVIDERS: ATTEND Internal Medicine Cardiovascular Disease
PROC: B246ZZ4 Ultrasonography of Right and Left Heart, Transesophageal (ICD-10-PCS; principal; 2018-06-18)
DX: G45.9 Transient cerebral ischemic attack, unspecified (principal); I10 Essential (primary) hypertension; I48.2 Chronic atrial fibrillation; Z79.01 Long term (current) use of anticoagulants; Z79.899 Other long term (current) drug therapy; Z95.2 Presence of prosthetic heart valve
CPT/HCPCS: 93312; J2704

== ENCOUNTER 2019-03-18 08:20 | Day surgery (SDC) | payer MEDICARE, MEDICAID ==
[2019-03-15 10:18] VITALS: BMI 24.3
--- NOTE | 2019-03-18 13:10 | OP ---
DATE OF PROCEDURE: 03/18/2019 PREOPERATIVE DIAGNOSIS: History of severe anemia last year with normal esophagogastroduodenoscopy and a colonoscopy that revealed about 10 to 12 polyps, one was large in the cecal area and removed piecemeal. All were benign adenomas. POSTOPERATIVE DIAGNOSES: 1. Residual polyp in the cecum at the previous polypectomy site removed by hot snare polypectomy. 2. Diverticulosis coli throughout the colon with no other polyp seen. RECOMMENDATIONS: 1. Repeat colonoscopy in 2 to 3 years depending on pathology results. 2. The patient has avoided alcohol since he was here last visit and has been doing well. I have encouraged him to continue that. 3. He can resume his Coumadin in 48 hours. He is on Coumadin for aortic valve replacement. He has been off for 2 days so far. ANESTHESIA: TIVA. PROCEDURE IN DETAIL: The patient was informed the risks, benefits, and possible complications of endoscopy including perforation, reaction to medication, aspiration. Informed consent was obtained, and the patient was brought to endoscopy suite, where he was sedated in standard fashion. Once he was comfortable, bite block was placed inside the orifice, and a rectal examination was performed. The endoscope was inserted into the anal canal through the colon. The cecum was identified by ileocecal valve and appendiceal orifice. There was some residual polyp area at the previous polypectomy site in the cecum, a 5 to 7 mm of tissue was removed by hot snare polypectomy in 2 pieces with complete removal. A close evaluation was performed in the remainder of the colon. The prep was very good. There was diverticulosis coli seen throughout the colon, but to my surprise, no other polyps were seen. Retroflexed views were normal, and the scope was removed. The patient tolerated the procedure well. There were no complications. Job ID: [id number]
== END 2019-03-18 13:10 | disposition home or self-care (01) ==
LOC: SDC 08:20
PROVIDERS: ATTEND Internal Medicine Gastroenterology
PROC: 0DBH8ZX Excision of Cecum, Via Natural or Artificial Opening Endoscopic, Diagnostic (ICD-10-PCS; principal; 2019-03-18)
DX: K63.5 Polyp of colon (principal); K57.30 Diverticulosis of large intestine without perforation or abscess without bleeding; K59.00 Constipation, unspecified; K21.9 Gastro-esophageal reflux disease without esophagitis; M19.90 Unspecified osteoarthritis, unspecified site; I48.91 Unspecified atrial fibrillation; I11.0 Hypertensive heart disease with heart failure; I50.9 Heart failure, unspecified; F10.11 Alcohol abuse, in remission; Z86.010 Personal history of colon polyps; Z79.01 Long term (current) use of anticoagulants; Z79.899 Other long term (current) drug therapy; Z95.2 Presence of prosthetic heart valve; Z98.890 Other specified postprocedural states
CPT/HCPCS: 88305